=== PATIENT | male | born 1985 | race Caucasian/White ===

== ENCOUNTER → 2020-08-10 10:57 | Outpatient (BNVA) | payer MEDICAID, SELFPAY | PROVIDERS: PCP Physician Assistant; Visit Provider Urology ==

== ENCOUNTER 2021-03-03 09:32 | Outpatient (REF) | payer OTHER, SELFPAY ==
[2021-03-03 11:04] LABS: Hematocrit 39.2 % (37-47); Hemoglobin 13.2 g/dl (12.0-16.0); Mean Corpuscular HGB Conc 33.7 g/dl (31.0-35.0); Mean Corpuscular Hemoglobin 31.3 pg (27.0-33.0); Mean Corpuscular Volume 92.9 fL (80-98); Mean Platelet Volume 10.1 fL (9.4-12.3); Platelet Count 318 X10*3/uL (160-400); Red Blood Count 4.22 X10*6/uL (4.20-5.50); Red Cell Distribution Width 12.8 % (11.0-16.0); White Blood Count 7.3 X10*3/uL (4.8-10.8)
[2021-03-03 12:04] LABS: TSH reflex Free T4 1.02 uIU/mL (0.32-4.0)
[2021-03-03 12:09] LABS: Alanine Aminotransferase 8 U/L (0-31); Albumin Level 4.3 g/dL (3.5-5.0); Alkaline Phosphatase 61 U/L (39-117); Anion Gap 12 (12-20); Aspartate Amino Transferase 14 U/L (5-31); Bilirubin Total 0.4 mg/dL (0.0-1.0); Blood Urea Nitrogen 11 mg/dL (9-16); Calcium 9.1 mg/dL (8.4-10.2); Carbon Dioxide 22 mmol/L (22-29); Chloride 111 mmol/L (96-108); Cholesterol 192 mg/dL; Estimated Glomerular Filt Rate > 60; Glucose Fasting 89 mg/dL (60-99); HDL Cholesterol 68 mg/dL; LDL Cholesterol Calculated 87 mg/dl; Potassium 4.4 mmol/L (3.3-5.1); Sodium 141 mmol/L (135-145); Total Protein 6.9 g/dL (6.5-8.0); Triglycerides 189 mg/dL
== END 2021-03-03 09:33 | disposition home or self-care (01) ==
LOC: HO.WFDLDS 09:32
PROVIDERS: Visit Provider Hospitalist
DX: Z00.00 Encounter for general adult medical examination without abnormal findings (principal)
CPT/HCPCS: 36415; 80053; 80061; 84443; 85027

== ENCOUNTER → 2021-06-07 14:08 | Outpatient (BNVA) | payer OTHER, SELFPAY | PROVIDERS: PCP Hospitalist | DX: N20.0 Calculus of kidney (principal); N13.30 Unspecified hydronephrosis | CPT/HCPCS: 99202 ==

== ENCOUNTER 2021-07-05 16:20 | Outpatient (REF) | payer OTHER, SELFPAY ==
--- NOTE | ~2021-07-05 | US_ITS ---
EXAMINATION: US RETROPERITONEAL LIMITED (RENAL ONLY) CLINICAL INFORMATION: Calculus of kidney. COMPARISON: None TECHNIQUE: Real-time imaging of the kidneys. FINDINGS: RIGHT KIDNEY: 12.8 x 3.4 x 4.2 cm (SAG x AP x TRV). The kidney is normal in size, contour, and echogenicity. Renal cortical thickness is normal. No calculi or focal parenchymal lesions. No hydronephrosis. LEFT KIDNEY: 13.1 x 5.9 x 5.0 cm (SAG x AP x TRV). The kidney is normal in size, contour, and echogenicity. Renal cortical thickness is normal. There is a 3 x 4 mm echogenic focus in the upper pole of the left kidney questionable for a stone. No focal parenchymal lesions. No hydronephrosis. US/US renal BI IMPRESSION: Question small left renal stone.
== END 2021-07-05 16:21 | disposition home or self-care (01) ==
LOC: HO.US 16:20
PROVIDERS: PCP Hospitalist
DX: N20.0 Calculus of kidney (principal); N13.30 Unspecified hydronephrosis
CPT/HCPCS: 76775

== ENCOUNTER → 2021-08-04 09:44 | Outpatient (BNVA) | payer OTHER, SELFPAY | PROVIDERS: PCP Hospitalist | DX: Z13.89 Encounter for screening for other disorder (principal) ==

== ENCOUNTER 2022-01-17 09:38 | Outpatient (REF) | payer OTHER, SELFPAY ==
--- NOTE | ~2022-01-17 | US_ITS ---
EXAMINATION: US RETROPERITONEAL LIMITED (RENAL ONLY) CLINICAL INFORMATION: Calculus of kidney. COMPARISON: Bilateral renal ultrasound dated 07/05/2021. TECHNIQUE: Real-time imaging of the kidneys. FINDINGS: RIGHT KIDNEY: 13.7 x 4.1 x 5.6 cm (SAG x AP x TRV). The kidney is normal in size, contour, and echogenicity. Renal cortical thickness is normal. No calculi or focal parenchymal lesions. Mild right-sided hydronephrosis is present. LEFT KIDNEY: 13.3 x 5.0 x 5.1 cm (SAG x AP x TRV). The kidney is normal in size, contour, and echogenicity. Renal cortical thickness is normal. There is a mid pole stone measuring 4 x 3 x 4 mm. No renal calculi or hydronephrosis. There is an anechoic structure seen in the lower renal sinus. Differential diagnosis would include a parapelvic cyst versus hydronephrosis in a duplicated collecting system. US/US renal BI IMPRESSION: 1. Mild right-sided hydronephrosis. 2. Anechoic structure in the lower renal pelvis on the left-parapelvic cysts versus hydronephrosis in the lower pole collecting system. A CT urogram may be useful for further evaluation. 3. Midpole 4 mm nonobstructing calculus.
== END 2022-01-17 09:39 | disposition home or self-care (01) ==
LOC: HO.HMGCX 09:38
DX: N20.0 Calculus of kidney (principal)
CPT/HCPCS: 76775

== ENCOUNTER 2022-02-09 09:35 | Outpatient (REF) | payer OTHER, SELFPAY ==
--- NOTE | ~2022-02-09 | CT_ITS ---
EXAMINATION: CT ABDOMEN AND PELVIS WITHOUT AND WITH CONTRAST CLINICAL INFORMATION: Parapelvic cysts versus hydronephrosis in duplicated collecting systems left kidney COMPARISON: Ultrasound abdomen 01/17/2022 TECHNIQUE: Noncontrast CT of the abdomen and pelvis is performed followed by split bolus contrast-enhanced images using 67 mL Omnipaque 350 contrast.? Postcontrast imaging is performed during the combined nephrogram and excretion phase. Sagittal and coronal reformatted images were obtained on the technologist's workstation for both the precontrast and postcontrast phases. This CT examination was performed using dose optimization techniques as appropriate, variously including the following: *Automated exposure control *Adjustment of mA and/or kV according to patient size (this includes techniques or standardized protocols for targeted exams where dose is matched to indication/reason for exam; i.e. extremities or head) *Use of iterative reconstruction technique DLP: 625 mGy-cm FINDINGS: LUNG BASES: The visualized lung bases are unremarkable. LIVER, GALLBLADDER, AND BILIARY TREE: The liver is normal in size, shape, and attenuation. No focal hepatic lesion or biliary ductal dilatation is present. The gallbladder is unremarkable with no evidence of radiopaque gallstones, gallbladder wall thickening, or obvious pericholecystic inflammatory changes. PANCREAS: Unremarkable. SPLEEN: Unremarkable. ADRENAL GLANDS: Unremarkable. KIDNEYS AND URETERS: Both kidneys are normal size, shape and attenuation. There is a 5 mm nonobstructive radiopaque calculi mid pole left kidney.. Postcontrast there are symmetrical bilateral nephrograms. The left kidney measures 11.3 cm in length and the right kidney measures 0.9 cm in length. There is a prominent elongated lower pole calyx left kidney. There is no dislocation parapelvic cysts seen. There is no hydronephrosis on either side. Mild bilateral extrarenal kidney pelvises are noted right greater than left. There is good opacification of bilateral kidney pelvises, proximal and mid ureters without any intraluminal filling defect BLADDER: The bladder is opacified with oral contrast and appears unremarkable. GASTROINTESTINAL TRACT: There is scattered stool and gas seen throughout the colon without significant distention. There is air-fluid level within there is cc, and proximal ascending colon The small bowel loops are normal caliber. Appendix is not visualized. The stomach is nondistended. ABDOMINAL WALL: No significant hernia is appreciated. LYMPH NODES: Normal. VASCULAR: Unremarkable. PELVIC VISCERA: The uterus is anteverted and appears unremarkable. No adnexal mass or free fluid seen. OSSEUS STRUCTURES: No lytic or sclerotic process seen. CT/CT urogram IMPRESSION: Unremarkable kidneys. No evidence of duplicated system or left peripelvic cysts seen in the left kidney. There are bilateral extrarenal kidney pelvises 5 mm nonobstructive calculi midpole left kidney.
[2022-02-09] MEDS: iohexoL 350 MG/ML 100 ML INFUS..BTL IV (10:30)
== END 2022-02-09 09:36 | disposition home or self-care (01) ==
LOC: HO.CT 09:35
PROVIDERS: Visit Provider Urology
DX: N20.0 Calculus of kidney (principal); N13.30 Unspecified hydronephrosis
CPT/HCPCS: 74178; Q9967

== ENCOUNTER → 2022-02-27 11:18 | Outpatient (BNVA) | payer OTHER, SELFPAY | PROVIDERS: PCP Hospitalist; Visit Provider Urology | DX: N20.0 Calculus of kidney (principal) | CPT/HCPCS: 99212 ==

== ENCOUNTER 2022-03-17 11:38 | Outpatient (REF) | payer OTHER, SELFPAY ==
[2022-03-17 12:42] LABS: Influenza A PCR NEGATIVE (Negative); Influenza B PCR NEGATIVE (Negative); Resp Syncy Virus RNA Qual PCR NEGATIVE (Negative); SARS COV2 PCR INHOUSE NEGATIVE (Negative)
== END 2022-03-17 11:39 | disposition home or self-care (01) ==
LOC: HO.LNP 11:38
PROVIDERS: Visit Provider Nurse Practitioner Family
DX: Z20.822 Contact with and (suspected) exposure to COVID-19 (principal)
CPT/HCPCS: 0241U

== ENCOUNTER 2022-03-22 06:35 | Day surgery (SDC) | payer OTHER, SELFPAY ==
[2022-03-15 12:48] VITALS: BMI 21.7
--- NOTE | 2022-03-21 12:36 | P.CONAN_ITS ---
Documented by User: Adriana Hancock NP 03/21/22 12:36 HPI - Anesthesia Eval Consult details Narrative: 36yo F for Left ESWL No previous on record Hx PONV PMFSH Active Problems Active Problems: All Active Problems (Updated 03/17/22 @ 09:12 by Cecy Ivory CNP) Viral upper respiratory illness (Acute) Nephrolithiasis (Acute) Hydronephrosis (Acute) Right otitis media (Acute) Well adult exam (Acute) Bipolar 1 disorder, depressed, moderate (Acute) Right shoulder pain (Acute) Physical exam, annual (Acute) URI with cough and congestion (Acute) Seasonal allergies (Acute) History of COVID-19 (Acute) Acute asthma (Acute) Asthma, chronic (Acute) Abrasion of ear (Acute) Recurrent dislocation, right shoulder (Acute) Renal calculi (Acute) Past Medical History Medical History History of postoperative nausea Low back pain Renal calculi Family History Family History Paternal Aunt Bipolar 1 disorder Maternal Grandmother Bipolar 1 disorder Mother Heart disease Other Mental health disorder Surgical History Surgical History History of mandibular surgery History of shoulder surgery Hx of colonoscopy Hx of tubal ligation Social History Social History Housing: Apartment Are you a primary insurance healthcare consultant to a significant other at home: Yes (2 children) Do you presently have visiting nurse or other home services: No Alcohol intake: current Alcohol intake frequency: holidays/special occasions only Patient Tobacco Use Status: Never used Tobacco e-Cigarette/Vaping Use: Never Used Second Hand Smoke Exposure: No Use of substances other than those prescribed or required for medical reasons: No Have you been hit, kicked, punched, or otherwise hurt by someone within the past year? If so, by whom?: No Are you DNR?: No Advance Directives: No Advance Directives Information Provided: Yes Advance Directives on File: No Recently lost weight without trying: No Patient : No FDLMP: 03/07/2022 : No Poor oral hygiene: No service: No Current occupational status: unemployed Cognitive needs: No Hearing needs: No Vision needs: Yes (Glasses) Meds Allergies Allergy/AdvReac Type Severity Reaction Status Date / Time lactose Allergy Severe Diarrhea Verified 03/22/22 07:24 Penicillins Allergy Severe Swelling Verified 03/22/22 07:24 bupropion Allergy Intermediate Rash Verified 03/22/22 07:24 grass pollen Allergy Intermediate watery Verified 03/22/22 07:24 eyes, sneezing aripiprazole Allergy Unknown unknown Verified 03/22/22 07:24 azithromycin Allergy Unknown Unknown Verified 03/22/22 07:24 lamotrigine Allergy Unknown Unknown Verified 03/22/22 07:24 oxcarbazepine Allergy Unknown Rash Verified 03/22/22 07:24 gabapentin AdvReac Severe dizziness Verified 03/22/22 07:24 unable to take Home Medications Medication Instructions Recorded Confirmed Last Taken Type fluvoxamine 150 mg 150 mg PO BEDTIME 02/28/21 03/15/22 Unknown History capsule,extended release 24 hr cetirizine 10 mg tablet 10 mg PO DAILY 08/04/21 03/22/22 Unknown History lorazepam 0.5 mg tablet 0.5 mg PO DAILY PRN anxiety 08/04/21 03/22/22 Unknown History Exam Exam Date and Time: March 21, 2022 1236 Height,Weight and Vital Signs: Height 5 ft 6 in Weight 61.235 kg Assessment and Plan Assessment Anesthesia Assessment: Chart Reviewed Documented by User: Eric Nunez MD 03/22/22 07:44 [facility] Past Medical History Medical History History of postoperative nausea Low back pain Renal calculi Family History Family History Paternal Aunt Bipolar 1 disorder Maternal Grandmother Bipolar 1 disorder Mother Heart disease Other Mental health disorder Family history of problems with anesthesia: No Surgical History Surgical History History of mandibular surgery History of shoulder surgery Hx of colonoscopy Hx of tubal ligation History of Problems with Anesthesia: No Social History Social History Housing: Apartment Are you a primary insurance healthcare consultant to a significant other at home: Yes (2 children) Do you presently have visiting nurse or other home services: No Alcohol intake: current Alcohol intake frequency: holidays/special occasions only Patient Tobacco Use Status: Never used Tobacco e-Cigarette/Vaping Use: Never Used Second Hand Smoke Exposure: No Use of substances other than those prescribed or required for medical reasons: No Have you been hit, kicked, punched, or otherwise hurt by someone within the past year? If so, by whom?: No Are you DNR?: No Advance Directives: No Advance Directives Information Provided: Yes Advance Directives on File: No Recently lost weight without trying: No Patient : No FDLMP: 03/07/2022 : No Poor oral hygiene: No service: No Current occupational status: unemployed Cognitive needs: No Hearing needs: No Vision needs: Yes (Glasses) Meds Allergies Allergy/AdvReac Type Severity Reaction Status Date / Time lactose Allergy Severe Diarrhea Verified 03/22/22 07:24 Penicillins Allergy Severe Swelling Verified 03/22/22 07:24 bupropion Allergy Intermediate Rash Verified 03/22/22 07:24 grass pollen Allergy Intermediate watery Verified 03/22/22 07:24 eyes, sneezing aripiprazole Allergy Unknown unknown Verified 03/22/22 07:24 azithromycin Allergy Unknown Unknown Verified 03/22/22 07:24 lamotrigine Allergy Unknown Unknown Verified 03/22/22 07:24 oxcarbazepine Allergy Unknown Rash Verified 03/22/22 07:24 gabapentin AdvReac Severe dizziness Verified 03/22/22 07:24 unable to take Home Medications Medication Instructions Recorded Confirmed Last Taken Type fluvoxamine 150 mg 150 mg PO BEDTIME 02/28/21 03/15/22 Unknown History capsule,extended release 24 hr cetirizine 10 mg tablet 10 mg PO DAILY 08/04/21 03/22/22 Unknown History lorazepam 0.5 mg tablet 0.5 mg PO DAILY PRN anxiety 08/04/21 03/22/22 Unknown History Exam Airway Mallampati Class: II TM Dist: >3cm Neck ROM: Full Loose/Missing/Broken Teeth: No Heart: rrr+s1s2 Lungs: cta b/l Assessment and Plan Assessment Anesthesia Assessment: Anesthesia Plan Discussed Final Anesthetic Review Family History of Problems with Anesthesia: No History of Problems with Anesthesia: No NPO: Yes ASA Class: II Final Preanesthetic Review: No Changes in Pt Med Stat, Meds/Allgs Chart Reviewed, Consent Obtained/Reviewed and Anes Risks/Benef Reviewed Patient Risk: Intermediate Procedure Risk: Intermediate Assessment/Block/Sedation in SS: Assess/Block/Sedation-SS Anesthetic Plan Anesthetic Plan: MAC: and Agree w/ Assess. and Plan Disposition: Standard PACU
--- NOTE | ~2022-03-22 | XR_ITS ---
EXAMINATION: XR ABDOMEN KUB CLINICAL INDICATION: Kidney stone. COMPARISON: CT urogram dated 02/09/2022; renal ultrasound dated 01/17/2022. TECHNIQUE: 2 AP views of the abdomen and pelvis are submitted. FINDINGS: The bowel gas pattern is normal with no evidence of ileus or obstruction. No unusual soft tissue calcifications are noted. No definite urinary calculus is appreciated, with imaging significantly limited by overlapping bowel gas. In particular, previously noted left renal calculi are not appreciated. The bones are unremarkable. XR/XR KUB IMPRESSION: No definite urinary calculus is seen radiographically, with imaging significantly limited by overlapping bowel contents
[2022-03-22 07:24] VITALS: BP 130/70; PULSE 89; RESP 16; TEMP 36.7; O2SAT 99
[2022-03-22] MEDS: Lactated Ringers 1,000 ML 100 ML IVCONT (07:43)
--- NOTE | 2022-03-22 07:45 | HO.ANESPROP2 ---
HPI - Anesthesia Eval Consult details Narrative: renal calculi PMFSH Active Problems Active Problems: All Active Problems (Updated 03/17/22 @ 09:12 by Cecy Ivory CNP) Viral upper respiratory illness (Acute) Nephrolithiasis (Acute) Hydronephrosis (Acute) Right otitis media (Acute) Well adult exam (Acute) Bipolar 1 disorder, depressed, moderate (Acute) Right shoulder pain (Acute) Physical exam, annual (Acute) URI with cough and congestion (Acute) Seasonal allergies (Acute) History of COVID-19 (Acute) Acute asthma (Acute) Asthma, chronic (Acute) Abrasion of ear (Acute) Recurrent dislocation, right shoulder (Acute) Renal calculi (Acute) Past Medical History Medical History History of postoperative nausea Low back pain Renal calculi Family History Family History Paternal Aunt Bipolar 1 disorder Maternal Grandmother Bipolar 1 disorder Mother Heart disease Other Mental health disorder Family history of problems with anesthesia: No Surgical History Surgical History History of mandibular surgery History of shoulder surgery Hx of colonoscopy Hx of tubal ligation History of Problems with Anesthesia: No Social History Social History Housing: Apartment Are you a primary rn transitional care to a significant other at home: Yes (2 children) Do you presently have visiting nurse or other home services: No Alcohol intake: current Alcohol intake frequency: holidays/special occasions only Patient Tobacco Use Status: Never used Tobacco e-Cigarette/Vaping Use: Never Used Second Hand Smoke Exposure: No Use of substances other than those prescribed or required for medical reasons: No Have you been hit, kicked, punched, or otherwise hurt by someone within the past year? If so, by whom?: No Are you DNR?: No Advance Directives: No Advance Directives Information Provided: Yes Advance Directives on File: No Recently lost weight without trying: No Patient : No FDLMP: 03/07/2022 : No Poor oral hygiene: No service: No Current occupational status: unemployed Cognitive needs: No Hearing needs: No Vision needs: Yes (Glasses) Meds Allergies Allergy/AdvReac Type Severity Reaction Status Date / Time lactose Allergy Severe Diarrhea Verified 03/22/22 07:24 Penicillins Allergy Severe Swelling Verified 03/22/22 07:24 bupropion Allergy Intermediate Rash Verified 03/22/22 07:24 grass pollen Allergy Intermediate watery Verified 03/22/22 07:24 eyes, sneezing aripiprazole Allergy Unknown unknown Verified 03/22/22 07:24 azithromycin Allergy Unknown Unknown Verified 03/22/22 07:24 lamotrigine Allergy Unknown Unknown Verified 03/22/22 07:24 oxcarbazepine Allergy Unknown Rash Verified 03/22/22 07:24 gabapentin AdvReac Severe dizziness Verified 03/22/22 07:24 unable to take Active Medications: Current Medications Albuterol Sulfate (Albuterol Sulfate (0.083%) 2.5 Mg/3 Ml Vial.Neb) 2.5 mg INHALE ONCE PRN PRN Reason: Shortness of Breath/Wheezing Levofloxacin (Levaquin) 500 mg in 100 mls @ 100 mls/hr IV PREOP ONE Stop: 03/22/22 08:26 Lactated Ringer's (Lr) 1,000 mls @ 100 mls/hr IVCONT .Q10H MARAL Last Admin: 03/22/22 07:43 Dose: 100 mls/hr Home Medications Medication Instructions Recorded Confirmed Last Taken Type fluvoxamine 150 mg 150 mg PO BEDTIME 02/28/21 03/15/22 Unknown History capsule,extended release 24 hr cetirizine 10 mg tablet 10 mg PO DAILY 08/04/21 03/22/22 Unknown History lorazepam 0.5 mg tablet 0.5 mg PO DAILY PRN anxiety 08/04/21 03/22/22 Unknown History Exam Exam Date and Time: March 22, 2022 0745 Height,Weight and Vital Signs: Height 5 ft 6 in Weight 61.235 kg Last Vital Signs Temp 98.0 F 03/22/22 07:24 Pulse 89 03/22/22 07:24 Resp 16 03/22/22 07:24 BP 130/70 03/22/22 07:24 Pulse Ox 99 03/22/22 07:24 O2 Del Method 03/22/22 07:24 Airway Mallampati Class: II TM Dist: >3cm Neck ROM: Full Loose/Missing/Broken Teeth: No Heart: rrr+s1s2 Lungs: cta b/l Assessment and Plan Assessment Anesthesia Assessment: Anesthesia Plan Discussed and Chart Reviewed Final Anesthetic Review Family History of Problems with Anesthesia: No History of Problems with Anesthesia: No NPO: Yes ASA Class: II Final Preanesthetic Review: No Changes in Pt Med Stat, Meds/Allgs Chart Reviewed, Consent Obtained/Reviewed and Anes Risks/Benef Reviewed Patient Risk: Intermediate Procedure Risk: Intermediate Assessment/Block/Sedation in SS: Assess/Block/Sedation-SS Anesthetic Plan Anesthetic Plan: MAC: and Agree w/ Assess. and Plan Disposition: Standard PACU
--- NOTE | 2022-03-22 08:04 | MHC.SHP ---
Pre-Procedural Eval Section A Date of Service: 03/22/22 The patient is an INPATIENT: No Section B Chief Complaint: Calculus of kidney Allergies: Allergies Allergy/AdvReac Type Severity Reaction Status Date / Time lactose Allergy Severe Diarrhea Verified 03/22/22 07:24 Penicillins Allergy Severe Swelling Verified 03/22/22 07:24 bupropion Allergy Intermediate Rash Verified 03/22/22 07:24 grass pollen Allergy Intermediate watery Verified 03/22/22 07:24 eyes, sneezing aripiprazole Allergy Unknown unknown Verified 03/22/22 07:24 azithromycin Allergy Unknown Unknown Verified 03/22/22 07:24 lamotrigine Allergy Unknown Unknown Verified 03/22/22 07:24 oxcarbazepine Allergy Unknown Rash Verified 03/22/22 07:24 gabapentin AdvReac Severe dizziness Verified 03/22/22 07:24 unable to take Plan I have reviewed the history and physical and performed a pertinent physical examination on my patient. No changes have occurred unless specified. Left ESWL. Discussed risks to include but not limited to, blood in the urine, bruising to the skin, kidney hematoma, possible need for another procedure if a stone fragment obstructs the ureter while passing, possible need to repeat procedure if stone is not completely fragmented.
--- NOTE | 2022-03-22 08:35 | W.PM.OPN ---
Operative Note Operative Note Date of Service: 03/22/22 Narrative: PreOperative Diagnosis:? ? Left Renal stone Post Operative Diagnosis:?Left? Renal stone Procedure:?Left? ESWL Surgeon:?Dr Catracho Scanlon Anesthesia:? MAC Indications for procedure: Hattie is a 36 year old female with 5 mm stone left kidney mid to lower pole. The patient understands ESWL may be a staged procedure and subsequent intervention may be required based on imaging after ESWL.? They also understand? there is a risk of bleeding to the kidney, infection, damage to adjacent organs, and stone migration following the procedure. Procedure: After informed consent was verified the patient was brought to the operating room and placed in a supine position.? Anesthesia was performed per protocol. Levaquin IV for antibiotic prophylaxis. Safety pause time-out was performed. Imaging was displayed in the room and laterality confirmed. ESWL was performed.?The stone was visualized on both fluoroscopy and ultrasound.? Shockwave lithotripsy was performed, after the first 300 shocks a pause for 3 minutes.? A total of 2000 shocks to a maximum of power of 18 with a maximum rate of 120 hertz.? Good fragmentation of the stone was appreciated. The patient tolerated the procedure well and was transferred to the recovery area upon completion. There was no evidence for flank discoloration. Complications: None
[2022-03-22 08:58] VITALS: BP 118/72; PULSE 95; RESP 16; TEMP 37.1; O2SAT 100
[2022-03-22 09:13] VITALS: BP 123/77; PULSE 90; RESP 16; TEMP 36.6; O2SAT 100
== END 2022-03-22 10:39 | disposition home or self-care (01) ==
PROVIDERS: Visit Provider Urology
PROC: (CPT 50590; principal; 2022-03-22 08:20)
DX: N20.0 Calculus of kidney (principal); Z87.442 Personal history of urinary calculi; J45.998 Other asthma; F31.9 Bipolar disorder, unspecified; Z79.899 Other long term (current) drug therapy; Z88.0 Allergy status to penicillin; Z88.8 Allergy status to other drugs, medicaments and biological substances; Z98.890 Other specified postprocedural states; Z86.16 Personal history of COVID-19
CPT/HCPCS: 50590; 74018; J1956; J2250

== ENCOUNTER 2022-04-01 10:00 | Outpatient (REF) | payer OTHER, SELFPAY ==
[2022-04-01 10:37] LABS: Blood Urea Nitrogen 7 mg/dL (9-16); Estimated Glomerular Filt Rate > 60
== END 2022-04-01 10:01 | disposition home or self-care (01) ==
LOC: HO.LAB 10:00
PROVIDERS: PCP Hospitalist; Visit Provider Urology
DX: N20.0 Calculus of kidney (principal)
CPT/HCPCS: 36415; 82565; 84520

== ENCOUNTER 2022-05-15 09:50 | Outpatient (REF) | payer OTHER, SELFPAY ==
--- NOTE | ~2022-05-15 | US_ITS ---
EXAMINATION: US RETROPERITONEAL LIMITED (RENAL ONLY) CLINICAL INFORMATION: Calculus of kidney. COMPARISON: X-ray abdomen KUB 03/22/2022. CT abdomen and pelvis without and with contrast 02/09/2022. Ultrasound retroperitoneal limited (renal only) 01/17/2022 and 07/05/2021. TECHNIQUE: Real-time imaging of the kidneys. FINDINGS: RIGHT KIDNEY: 12.1 x 2.5 x 3.8 cm (SAG x AP x TRV). The kidney is normal in size, contour, and echogenicity. Renal cortical thickness is normal. No calculi or focal parenchymal lesions. No hydronephrosis. Upper pole echogenic 3 mm focus without posterior acoustic shadowing may reflect a nonobstructing calculus versus vascular calcification.. LEFT KIDNEY: 13.1 x 5.6 x 4.6 cm (SAG x AP x TRV). The kidney is normal in size, contour, and echogenicity. Renal cortical thickness is normal. No focal parenchymal lesions or hydronephrosis. Upper pole 9 x 3 mm echogenic focus, suggesting nonobstructing calculus. Multiple echogenic foci otherwise seen in the upper pole, could reflect vascular calcifications or nonobstructing calculi. Previously seen anechoic focus in the lower renal sinus, is less evident in today's study. US/US renal BI IMPRESSION: 1. Right renal 3 mm upper pole nonobstructing talus versus vascular calcification. No hydronephrosis. 2. Left renal 9 mm upper pole nonobstructing calculus. Additional echogenic foci, nonspecific, from small vascular calcifications or nonobstructing calculi. 3. Additional findings and details as above.
== END 2022-05-15 09:51 | disposition home or self-care (01) ==
LOC: HO.US 09:50
PROVIDERS: PCP Hospitalist; Visit Provider Urology
DX: N20.0 Calculus of kidney (principal)
CPT/HCPCS: 76775

== ENCOUNTER → 2022-06-09 15:24 | Outpatient (BNVA) | payer OTHER, SELFPAY | PROVIDERS: PCP Hospitalist; Visit Provider Nurse Practitioner Family | DX: N20.0 Calculus of kidney (principal) | CPT/HCPCS: 99212 ==

== ENCOUNTER 2022-06-21 06:15 | Day surgery (SDC) | payer OTHER, SELFPAY ==
--- NOTE | ~2022-06-21 | XR_ITS ---
EXAMINATION: XR ABDOMEN KUB CLINICAL INDICATION: Stone COMPARISON: Ultrasound 05/15/2022 TECHNIQUE: AP view of the abdomen. FINDINGS: There is no definite calcification seen overlying the expected position of either kidney or ureter. Colonic stool does limit the evaluation. There is a moderate diffuse stool burden. No bowel obstruction. No acute osseous abnormality. The lung bases are clear. XR/XR KUB IMPRESSION: No definite calcification seen overlying the expected position of either kidney or ureter. Moderate stool burden.
[2022-06-21 06:38] VITALS: BMI 23.8
[2022-06-21 06:49] VITALS: BP 140/64; PULSE 96; RESP 16; TEMP 37; O2SAT 97
[2022-06-21] MEDS: Lactated Ringers 1,000 ML 999 ML IV (07:00)
--- NOTE | 2022-06-21 07:23 | MHC.SHP ---
Pre-Procedural Eval Section A Date of Service: 06/21/22 The patient is an INPATIENT: No The History & Physical has been completed within 30 days and I have reviewed it.: Yes Section B Chief Complaint: Calculus of kidney Details of Present Illness: left ESWL 9mm stone Medical History: No relevant PMH History of Previous Operations: Relevant previous surgery/procedure and date(s) Allergies: Allergies Allergy/AdvReac Type Severity Reaction Status Date / Time lactose Allergy Severe Diarrhea Verified 06/09/22 17:05 Penicillins Allergy Severe Swelling Verified 06/09/22 17:05 bupropion Allergy Intermediate Rash Verified 06/09/22 17:05 grass pollen Allergy Intermediate watery Verified 06/09/22 17:05 eyes, sneezing aripiprazole Allergy Unknown unknown Verified 06/09/22 17:05 azithromycin Allergy Unknown Unknown Verified 06/09/22 17:05 lamotrigine Allergy Unknown Unknown Verified 06/09/22 17:05 oxcarbazepine Allergy Unknown Rash Verified 06/09/22 17:05 gabapentin AdvReac Severe dizziness Verified 06/09/22 17:05 unable to take Review of Systems Sugical H&P ROS: Negative: Constitution, Cardiovascular, Respiratory, Neurological, Psychiatric, Hem-Onc, Allergic/Immunologic, Gastrointestinal, Genitourinary, Musculoskeletal, Integumentary, Endocrine and Eyes/Ears/Nose/Throat Exam Surgical H&P Exam: Normal: HEENT, Normal: Heart, Normal: Lungs, Normal: Extremities, Normal: Abdomen, Normal: Skin and Normal: Neurological Plan Diagnosis/Plan: Unchanged (left ESWL) I have reviewed the history and physical and performed a pertinent physical examination on my patient. No changes have occurred unless specified. Time Spent With Patient Time: Total time managing care of this patient today ____ minutes.
--- NOTE | 2022-06-21 07:25 | HO.ANESPROP2 ---
HPI - Anesthesia Eval Consult details Narrative: for lithotripsy today. history of PONV PMFSH Active Problems Active Problems: All Active Problems (Updated 03/17/22 @ 09:12 by Cecy Ivory CNP) Viral upper respiratory illness (Acute) Nephrolithiasis (Acute) Hydronephrosis (Acute) Right otitis media (Acute) Well adult exam (Acute) Bipolar 1 disorder, depressed, moderate (Acute) Right shoulder pain (Acute) Physical exam, annual (Acute) URI with cough and congestion (Acute) Seasonal allergies (Acute) History of COVID-19 (Acute) Acute asthma (Acute) Asthma, chronic (Acute) Abrasion of ear (Acute) Recurrent dislocation, right shoulder (Acute) Renal calculi (Acute) Past Medical History Medical History History of postoperative nausea Low back pain Renal calculi Family History Family History Paternal Aunt Bipolar 1 disorder Maternal Grandmother Bipolar 1 disorder Mother Heart disease Other Mental health disorder Family history of problems with anesthesia: No Surgical History Surgical History History of mandibular surgery History of shoulder surgery Hx of colonoscopy Hx of tubal ligation History of Problems with Anesthesia: No Social History Social History Housing: Apartment Are you a primary toddler caregiver to a significant other at home: Yes (2 children) Do you presently have visiting nurse or other home services: No Alcohol intake: current Alcohol intake frequency: does not drink Patient Tobacco Use Status: Never used Tobacco e-Cigarette/Vaping Use: Never Used Second Hand Smoke Exposure: No Use of substances other than those prescribed or required for medical reasons: No Are you DNR?: No Advance Directives: No Advance Directives Information Provided: Yes Advance Directives on File: No service: No Current occupational status: unemployed Cognitive needs: No Hearing needs: No Vision needs: Yes (Glasses) Meds Allergies Allergy/AdvReac Type Severity Reaction Status Date / Time lactose Allergy Severe Diarrhea Verified 06/09/22 17:05 Penicillins Allergy Severe Swelling Verified 06/09/22 17:05 bupropion Allergy Intermediate Rash Verified 06/09/22 17:05 grass pollen Allergy Intermediate watery Verified 06/09/22 17:05 eyes, sneezing aripiprazole Allergy Unknown unknown Verified 06/09/22 17:05 azithromycin Allergy Unknown Unknown Verified 06/09/22 17:05 lamotrigine Allergy Unknown Unknown Verified 06/09/22 17:05 oxcarbazepine Allergy Unknown Rash Verified 06/09/22 17:05 gabapentin AdvReac Severe dizziness Verified 06/09/22 17:05 unable to take Active Medications: Current Medications Acetaminophen (Ofirmev) 1,000 mg in 100 mls @ 400 mls/hr IV PREOP ONE Stop: 06/21/22 07:35 Lactated Ringer's (Lr) 1,000 mls @ 999 mls/hr IV .Q1H1M MARAL Stop: 06/21/22 08:30 Sodium Chloride (0.9 % Sodium Chloride Flush 3 Ml Syringe) 3 ml IVFLUSH QSHIFT [facility] Home Medications Medication Instructions Recorded Confirmed Last Taken Type fluvoxamine 150 mg 150 mg PO BEDTIME 02/28/21 06/09/22 Unknown History capsule,extended release 24 hr cetirizine 10 mg tablet 10 mg PO DAILY 08/04/21 06/09/22 Unknown History lorazepam 0.5 mg tablet 0.5 mg PO DAILY PRN anxiety 08/04/21 06/09/22 Unknown History pyridoxine (vitamin B6) 100 mg 100 mg PO DAILY 06/09/22 Unknown History tablet Exam Exam Date and Time: June 21, 2022 0725 Height,Weight and Vital Signs: Height 5 ft 6 in Weight 67.132 kg Last Vital Signs Temp 98.6 F 06/21/22 06:49 Pulse 96 06/21/22 06:49 Resp 16 06/21/22 06:49 BP 140/64 H 06/21/22 06:49 Pulse Ox 97 06/21/22 06:49 O2 Del Method 06/21/22 06:49 Airway Mallampati Class: II TM Dist: >3cm Heart: rrr Lungs: cta Assessment and Plan Assessment Anesthesia Assessment: Anesthesia Plan Discussed and Chart Reviewed Final Anesthetic Review Family History of Problems with Anesthesia: No History of Problems with Anesthesia: No NPO: Yes ASA Class: II Final Preanesthetic Review: No Changes in Pt Med Stat, Meds/Allgs Chart Reviewed, Consent Obtained/Reviewed and Anes Risks/Benef Reviewed Patient Risk: Low Procedure Risk: Low Anesthetic Plan Anesthetic Plan: GA and Agree w/ Assess. and Plan Disposition: Standard PACU
--- NOTE | 2022-06-21 08:05 | W.PM.OPN ---
Operative Note Operative Note Date of Service: 06/21/22 Narrative: PreOperative Diagnosis: left Renal stones Post Operative Diagnosis: left Renal stones Procedure: left ESWL Surgeon: Dr Ramin Moy Anesthesia: mac/sedation Indications for procedure: The patient understands ESWL may be a staged procedure and subsequent intervention may be required based on imaging after ESWL. Quoted stone clearance rates for a solitary procedure are in the 70-80% range based primarily on stone location. They also understand there is a risk of bleeding to the kidney, infection, damage to adjacent organs, and stone migration following the procedure. - Imaging 9mm left upper pole on US Procedure: After informed consent was verified the patient was brought to the operating room and placed in a supine position. Anesthesia was performed per protocol. Safety pause time-out was performed. Imaging was displayed in the room and laterality confirmed. ESWL was performed. The 1st 500 shocks were performed at 60 hertz. These were performed with increasing power. Once maximum power was reached the rate was increased to 180 hertz. A total of 2500 shocks were given. Targeted imaging with ultrasound/fluoroscopy showed stone smudging suggestive of disintegration. - Stone fragments appeared caught in a calyx suggesting possibility of calyceal diverticulum The patient tolerated the procedure well and was transferred to the recovery area upon completion. Post procedure imaging will be organized. There was no evidence for flank discoloration.
[2022-06-21 08:33] VITALS: BP 102/63; PULSE 86; RESP 18; TEMP 36.8; O2SAT 99
[2022-06-21] MEDS: oxyCODONE HCl Immed Release 5 MG TABLET PO (08:43)
[2022-06-21] MEDS: Ketorolac Tromethamine 15 MG/ML VIAL IVPUSH (08:45)
[2022-06-21 08:48] VITALS: BP 131/72; PULSE 71; RESP 18; O2SAT 100
[2022-06-21 09:03] VITALS: BP 119/79; PULSE 82; RESP 18; TEMP 37; O2SAT 100
== END 2022-06-21 09:42 | disposition home or self-care (01) ==
PROVIDERS: PCP Hospitalist; Visit Provider Urology
PROC: (CPT 50590; principal; 2022-06-21 07:30)
DX: N20.0 Calculus of kidney (principal); Z87.442 Personal history of urinary calculi; F31.32 Bipolar disorder, current episode depressed, moderate; J45.909 Unspecified asthma, uncomplicated; Z79.51 Long term (current) use of inhaled steroids; Z79.899 Other long term (current) drug therapy; Z88.0 Allergy status to penicillin; Z88.8 Allergy status to other drugs, medicaments and biological substances; Z86.16 Personal history of COVID-19
CPT/HCPCS: 50590; 74018; J0131; J1885; J3010

== ENCOUNTER 2022-07-17 10:12 | Outpatient (REF) | payer OTHER, SELFPAY ==
--- NOTE | ~2022-07-17 | US_ITS ---
EXAMINATION: US RETROPERITONEAL LIMITED (RENAL ONLY) CLINICAL INFORMATION: Calculus of kidney. COMPARISON: Renal ultrasound 05/15/2022 and 01/17/2022. CT urogram 02/09/2022. TECHNIQUE: Real-time imaging of the kidneys. FINDINGS: RIGHT KIDNEY: 13.1 x 3.5 x 3.9 cm (SAG x AP x TRV). The kidney is normal in size, contour, and echogenicity. Renal cortical thickness is normal. No calculi or focal parenchymal lesions. No hydronephrosis. LEFT KIDNEY: 13.3 x 5.0 x 4.5 cm (SAG x AP x TRV). The kidney is normal in size, contour, and echogenicity. Renal cortical thickness is normal. No calculi or focal parenchymal lesions. No hydronephrosis. US/US renal BI IMPRESSION: No hydronephrosis. No nephrolithiasis is visible.
== END 2022-07-17 10:13 | disposition home or self-care (01) ==
LOC: HO.US 10:12
PROVIDERS: PCP Hospitalist; Visit Provider Nurse Practitioner Family
DX: N20.0 Calculus of kidney (principal)
CPT/HCPCS: 76775

== ENCOUNTER → 2022-08-03 10:26 | Outpatient (BNVA) | payer OTHER, SELFPAY | PROVIDERS: PCP Hospitalist; Visit Provider Nurse Practitioner Family | DX: N20.0 Calculus of kidney (principal) | CPT/HCPCS: 99212 ==

== ENCOUNTER 2022-08-21 22:05 | Emergency (ER) | payer OTHER, SELFPAY ==
--- NOTE | ~2022-08-21 | XR_ITS ---
EXAMINATION: XR HAND, LEFT CLINICAL INFORMATION: Left hand pain COMPARISON: None available. TECHNIQUE: PA, lateral, and oblique views of the left hand. FINDINGS: The bones and soft tissues are normal. No fracture. Alignment is anatomic. Joint spaces are maintained. No erosions or soft tissue calcifications. XR/XR hand LT min 3V IMPRESSION: Normal left hand.
[2022-08-21 22:33] VITALS: BP 122/88; PULSE 113; RESP 18; TEMP 36.9; O2SAT 99; BMI 21.7
--- NOTE | 2022-08-22 00:37 | ED.EXTPRO ---
HPI - Extremity Problem General Chief complaint: Extremity Injury, Upper Stated complaint: Left thumb injury at work Time Seen by Provider: 08/22/22 00:37 Source: patient Mode of arrival: ambulatory Limitations: no limitations History of Present Illness HPI Narrative: Patient complaining of left thumb pain which she claims that she got injured about a week ago at work when a Pallet fell on hand no deformity no swelling has pain on extension of the left thumb patient was sent from the work to confirm about any fracture Related Data Home Medications Medication Instructions Recorded Confirmed fluvoxamine 150 mg 150 mg PO BEDTIME 02/28/21 07/27/22 capsule,extended release 24 hr cetirizine 10 mg tablet 10 mg PO DAILY 08/04/21 07/27/22 lorazepam 0.5 mg tablet 0.5 mg PO DAILY PRN anxiety 08/04/21 07/27/22 Previous Rx's Medication Instructions Recorded albuterol sulfate 1.25 mg/3 mL 1.25 mg (3 mL) inhalation QID PRN 05/24/21 solution for nebulization shortness of breath or wheezing 1 month #90 mL albuterol sulfate 90 mcg/actuation 2 puff inhalation Q6H PRN for 08/03/21 aerosol inhaler (ProAir HFA) dyspnea #8.5 ea fluticasone propionate 50 2 spray intranasal DAILY #48 mL 03/13/22 mcg/actuation nasal spray,suspension pyridoxine (vitamin B6) 100 mg 50 mg PO DAILY 90 days #45 tabs 08/03/22 tablet ibuprofen 600 mg tablet 600 mg PO Q6H PRN fever or pain 08/22/22 #30 tabs Allergies Allergy/AdvReac Type Severity Reaction Status Date / Time lactose Allergy Severe Diarrhea Verified 08/21/22 22:41 Penicillins Allergy Severe Swelling Verified 08/21/22 22:41 bupropion Allergy Intermediate Rash Verified 08/21/22 22:41 grass pollen Allergy Intermediate watery Verified 08/21/22 22:41 eyes, sneezing aripiprazole Allergy Unknown unknown Verified 08/21/22 22:41 azithromycin Allergy Unknown Unknown Verified 08/21/22 22:41 lamotrigine Allergy Unknown Unknown Verified 08/21/22 22:41 oxcarbazepine Allergy Unknown Rash Verified 08/21/22 22:41 gabapentin AdvReac Severe dizziness Verified 08/21/22 22:41 unable to take Review of Systems Review of Systems: Yes all other systems are reviewed and are negative [facility] Past Medical History Medical History History of postoperative nausea Low back pain Renal calculi Surgical History History of mandibular surgery History of shoulder surgery Hx of colonoscopy Hx of tubal ligation Family History Family History Paternal Aunt Bipolar 1 disorder Maternal Grandmother Bipolar 1 disorder Mother Heart disease Other Mental health disorder Social History Social History Housing: Apartment Are you a primary pharmacy care coordinator to a significant other at home: Yes (2 children) Do you presently have visiting nurse or other home services: No Alcohol intake: current Alcohol intake frequency: does not drink Patient Tobacco Use Status: Never used Tobacco e-Cigarette/Vaping Use: Never Used Second Hand Smoke Exposure: No Advance Directives: Yes Advance Directives on File: Yes Advance Directives Date on File: 03/22/22 service: No Current occupational status: unemployed Cognitive needs: No Hearing needs: No Vision needs: Yes (Glasses) Physical Exam Vital Signs: Vital Signs: Last Vital Signs Temp 98.5 F 08/21/22 22:33 Pulse 113 H 08/21/22 22:33 Resp 18 08/21/22 22:33 BP 122/88 08/21/22 22:33 Pulse Ox 99 08/21/22 22:33 O2 Del Method Room Air 08/21/22 22:33 BMI result Body Mass Index 21.7 Extrem: Hand/finger images: 1. Diffuse soft tenderness left thumb without any deformity or bony tenderness good range of movement Medications Administered Discontinued Medications Generic Name Dose Route Start Last Admin Trade Name Freq PRN Reason Stop Dose Admin Ibuprofen 600 mg 08/22/22 00:49 08/22/22 00:58 Ibuprofen 600 Mg Tablet PO 08/22/22 00:50 600 mg ONCE ONE Administration Medical Decision Making Medical Decision Making [facility] Narrative: X-ray negative for any fracture clinically muscular pain patient already has a thumb spica brace which she will use it Discharge Plan Discharge Clinical Impression: Contusion of left thumb Patient Disposition: Home, Self-Care Instructions: Contusion in Adults (ED) Additional Instructions: Use the left thumb brace for support ibuprofen for pain x-rays negative for fracture Prescriptions: New ibuprofen 600 mg tablet 600 mg PO Q6H PRN (Reason: fever or pain) Qty: 30 0RF No Action albuterol sulfate 1.25 mg/3 mL solution for nebulization 1.25 mg inhalation QID PRN (Reason: shortness of breath or wheezing) 30 Days Qty: 90 4RF albuterol sulfate [ProAir HFA] 90 mcg/actuation HFA aerosol inhaler 2 puff inhalation Q6H PRN (Reason: for dyspnea) Qty: 8.5 11RF fluticasone propionate 50 mcg/actuation spray,suspension 2 spray intranasal DAILY Qty: 48 1RF fluvoxamine 150 mg capsule,extended release 24hr 150 mg PO BEDTIME pyridoxine (vitamin B6) 100 mg tablet 50 mg PO DAILY 90 Days Qty: 45 2RF cetirizine 10 mg tablet 10 mg PO DAILY lorazepam 0.5 mg tablet 0.5 mg PO DAILY PRN (Reason: anxiety) Discharge Date/Time: 08/22/22 01:05
[2022-08-22] MEDS: Ibuprofen 600 MG TABLET PO (00:58)
--- NOTE | 2022-08-22 01:03 | PC.NURSE ---
assess and discharge by provider, This rn reviewed discharge instructions, pt verbalized understanding, no sign of distress.
== END 2022-08-22 01:05 | disposition home or self-care (01) ==
PROVIDERS: Emergency Provider Internal Medicine; PCP Hospitalist
DX: S60.012A Contusion of left thumb without damage to nail, initial encounter (principal); W20.8XXA Other cause of strike by thrown, projected or falling object, initial encounter; Z79.899 Other long term (current) drug therapy; Y93.89 Activity, other specified; Y92.512 Supermarket, store or market as the place of occurrence of the external cause; Y99.0 Civilian activity done for income or pay
CPT/HCPCS: 29125; 73130; 99282; 99283

== ENCOUNTER 2022-11-21 04:21 | Emergency (ER) | payer OTHER, SELFPAY ==
--- NOTE | ~2022-11-21 | CT_ITS ---
EXAMINATION: CT HEAD WITHOUT CONTRAST CLINICAL INFORMATION: Headache. Head trauma. Loss of consciousness. COMPARISON: None. TECHNIQUE: Contiguous axial imaging was performed from the skull base to vertex without intravenous contrast. This CT examination was performed using dose optimization techniques as appropriate, variously including the following: * Automated exposure control * Adjustment of mA and/or kV according to patient size (this includes techniques or standardized protocols for targeted exams where dose is matched to indication/reason for exam; i.e. extremities or head) Use of iterative reconstruction technique DLP: 626 mGy-cm. FINDINGS: There is no evidence of acute intracranial hemorrhage or territorial infarction. No abnormal mass effect or midline shift is seen. May to white matter differentiation is well preserved. No extra-axial fluid collections are identified. No hydrocephalus. No significant volume loss. There is no abnormal attenuation within the brain parenchyma. The osseous structures and soft tissues are normal. The mastoid air cells and visualized portions of the paranasal sinuses are well aerated. CT/CT head/brain wo IV con IMPRESSION: No acute intracranial pathology.
[2022-11-21 04:28] VITALS: BP 148/9; PULSE 130; O2SAT 100
--- NOTE | 2022-11-21 04:30 | ECG_ITS ---
Test Reason : SYNCOPE Blood Pressure : / mmHG Vent. Rate : 109 BPM Atrial Rate : 109 BPM P-R Int : 080 ms QRS Dur : 102 ms QT Int : 384 ms P-R-T Axes : 013 063 003 degrees QTc Int : 517 ms Sinus tachycardia with short MA Otherwise normal ECG No previous ECGs available Referred By: Generic ED Physician Electronically Signed By:Luigi Morris
[2022-11-21 04:34] VITALS: BP 140/96; PULSE 116; RESP 19; TEMP 36.7; O2SAT 100; BMI 22.6
[2022-11-21 04:39] LABS: MANUAL DIFF FLAG NO
[2022-11-21 04:40] LABS: Basophils Percent Auto 0.3 % (0-2); Eosinophils Percent Auto 0.3 % (0-4); Hemoglobin 12.7 g/dl (12.0-16.0); Imm Gran Abs Auto 0.01 X10*3/uL (0.00-0.03); Imm Gran Pct Auto 0.2 % (0.0-0.4); Lymphocytes Absolute Auto 1.8 X10*3/uL (1.2-4.9); Lymphocytes Percent Auto 27.3 % (20-40); Mean Corpuscular HGB Conc 34.3 g/dl (31.0-35.0); Mean Corpuscular Hemoglobin 30.7 pg (27.0-33.0); Mean Corpuscular Volume 89.4 fL (80.0-98.0); Mean Platelet Volume 9.3 fL (9.4-12.3); Monocytes Absolute Auto 0.6 X10*3/uL (0.1-1.2); Monocytes Percent Auto 8.6 % (2-11); Neutrophils Absolute Auto 4.1 x10*3/uL (2.0-8.3); Neutrophils Percent Auto 63.3 % (45-73); Platelet Count 287 X10*3/uL (160-400); Red Blood Count 4.14 X10*6/uL (4.20-5.50); Red Cell Distribution Width 12.7 % (11.0-16.0); White Blood Count 6.4 X10*3/uL (4.8-10.8)
--- NOTE | 2022-11-21 04:46 | MHC.EDTECH ---
Patient came in by ambulance, patient was changed into hospital attire,Vitals taken and placed on the glost tile shader, EKG done and labs were obtained and sent to lab. Call martins is within reach.
[2022-11-21 04:53] LABS: Anion Gap 16 (12-20); Blood Urea Nitrogen 15 mg/dL (9-16); Calcium 8.9 mg/dL (8.4-10.2); Carbon Dioxide 17 mmol/L (22-29); Chloride 107 mmol/L (96-108); Creatinine Clr Calc Pharmacy 92.4; Estimated Glomerular Filt Rate > 60; Glucose Random 123 mg/dL (60-115); Potassium 3.5 mmol/L (3.3-5.1); Sodium 136 mmol/L (135-145)
[2022-11-21 05:04] LABS: Troponin-I High Sensitivity < 2.7 ng/L (<3.5-17.0)
[2022-11-21 05:48] VITALS: BP 129/65; PULSE 119; RESP 22; TEMP 36.7; O2SAT 99
[2022-11-21 06:00] LABS: Appearance Urine Clear; Color Urine Yellow; Glucose Urine UA Negative (Negative); Leukocyte Esterase Urine Negative (Negative); Nitrite Urine Negative (Negative); Specific Gravity - Urine <= 1.005 (1.005-1.025); Urine Blood Negative (Negative); Urine Ketones Negative (Negative); Urine Protein Negative (Neg-Trace)
[2022-11-21 06:01] LABS: UPreg QC Valid YES; Urine Pregnancy NEGATIVE (NEGATIVE)
--- NOTE | 2022-11-21 07:24 | ED_ITS ---
HPI - General Adult General Chief complaint: Fall Stated complaint: Dizziness/ Heat Stroke? Time Seen by Provider: 11/21/22 07:06 Source: patient and EMS Mode of arrival: EMS Limitations: no limitations History of Present Illness HPI narrative: 37-year-old female with history of asthma, migraine headaches, bipolar disorder presents after loss of consciousness. Patient was at work when she started feel lightheaded and dizzy. She then tried to sit down on her stool and fell back and hit her head. There was reported loss of consciousness. Patient and report they have recently moved to a new home, barely getting any sleep whatsoever and she works 3rd shift. She has not been eating well or drinking well. She did describe a prodrome of palpitations, mild nausea and shortness of breath. She has had no recent travel, surgeries, lower extremity edema. She has had no chest pain. She has no history of PE or DVT. Patient overall describes her symptoms as quite severe. She also has a left-sided headache which caught which she reports is similar to her usual migraines. The headache is severe associated with photo and phonophobia. There is mild nausea, no vomiting. She denies any sudden-onset headache. She denies any neck pain or stiffness. She denies any focal neurologic deficits. Related Data Home Medications Medication Instructions Recorded Confirmed fluvoxamine 150 mg 150 mg PO BEDTIME 02/28/21 07/27/22 capsule,extended release 24 hr cetirizine 10 mg tablet 10 mg PO DAILY 08/04/21 07/27/22 lorazepam 0.5 mg tablet 0.5 mg PO DAILY PRN anxiety 08/04/21 07/27/22 Previous Rx's Medication Instructions Recorded albuterol sulfate 1.25 mg/3 mL 1.25 mg (3 mL) inhalation QID PRN 05/24/21 solution for nebulization shortness of breath or wheezing 1 month #90 mL albuterol sulfate 90 mcg/actuation 2 puff inhalation Q6H PRN for 08/03/21 aerosol inhaler (ProAir HFA) dyspnea #8.5 ea fluticasone propionate 50 2 spray intranasal DAILY #48 mL 03/13/22 mcg/actuation nasal spray,suspension pyridoxine (vitamin B6) 100 mg 50 mg PO DAILY 90 days #45 tabs 08/03/22 tablet ibuprofen 600 mg tablet 600 mg PO Q6H PRN fever or pain 04/18/23 #30 tabs Allergies Allergy/AdvReac Type Severity Reaction Status Date / Time lactose Allergy Severe Diarrhea Verified 08/21/22 22:41 Penicillins Allergy Severe Swelling Verified 08/21/22 22:41 bupropion Allergy Intermediate Rash Verified 08/21/22 22:41 grass pollen Allergy Intermediate watery Verified 08/21/22 22:41 eyes, sneezing aripiprazole Allergy Unknown unknown Verified 08/21/22 22:41 azithromycin Allergy Unknown Unknown Verified 08/21/22 22:41 lamotrigine Allergy Unknown Unknown Verified 08/21/22 22:41 oxcarbazepine Allergy Unknown Rash Verified 08/21/22 22:41 gabapentin AdvReac Severe dizziness Verified 08/21/22 22:41 unable to take Review of Systems Review of Systems: CONSTITUTIONAL: Denies weight loss, fever and chills. HEENT: Denies changes in vision and hearing. RESPIRATORY: + SOB - cough. CV: Denies palpitations no CP. GI: Denies abdominal pain, nausea, vomiting and diarrhea. : Denies dysuria and urinary frequency. MSK: Denies myalgia and joint pain. SKIN: Denies rash and pruritus. NEUROLOGICAL: + headache and syncope. PSYCHIATRIC: Denies recent changes in mood. Denies anxiety and depression. All other ROS are negative unless in HPI PMFSH Past Medical History Medical History History of postoperative nausea Low back pain Renal calculi Surgical History History of mandibular surgery History of shoulder surgery Hx of colonoscopy Hx of tubal ligation Family History Family History Paternal Aunt Bipolar 1 disorder Maternal Grandmother Bipolar 1 disorder Mother Heart disease Other Mental health disorder Social History Social History Housing: Apartment Are you a primary resident care spec to a significant other at home: Yes (2 children) Do you presently have visiting nurse or other home services: No Alcohol intake: current Alcohol intake frequency: holidays/special occasions only Patient Tobacco Use Status: Never used Tobacco Smoked in Last 30 Days: No e-Cigarette/Vaping Use: Never Used Second Hand Smoke Exposure: No Use of substances other than those prescribed or required for medical reasons: No Advance Directives: Yes Advance Directives on File: Yes Advance Directives Date on File: 03/22/22 Patient : No service: No Current occupational status: unemployed Cognitive needs: No Hearing needs: No Vision needs: Yes (Glasses) Physical Exam ED Vital Signs: Vital Signs - 24 hr 11/21/22 04:34 11/21/22 05:48 11/21/22 07:36 Temperature 98.1 F 98.1 F 97.8 F Pulse Rate 116 H 119 H 112 H Respiratory Rate 19 22 H 19 Blood Pressure 140/96 H 129/65 135/80 Pulse Oximetry 100 99 99 Oxygen Delivery Method Room Air Room Air Room Air 11/21/22 08:05 Temperature 98.5 F Pulse Rate 91 Respiratory Rate 16 Blood Pressure 127/73 Pulse Oximetry 99 Oxygen Delivery Method Room Air BMI result Body Mass Index 22.6 GEN: Well developed, no acute distress, alert, oriented HEENT: Normocephalic, atraumatic, normal external ears, nose appears normal, no oropharyngeal edema or exudates Eyes: Normal to appearance Neck: Supple, no lymphadenopathy, no midline tenderness, able to remove C- collar Respiratory: Talks in complete sentences, no respiratory distress, clear to auscultation bilaterally Cardiovascular: Regular rate and rhythm, no murmurs rubs or gallops Abdomen: Soft, nontender, nondistended, no guarding, no rebound Back: No CVA tenderness Extremities: No clubbing cyanosis or edema Neurologic: No focal neurologic deficits, cranial nerves 2-12 intact, strength is 5/5 bilaterally Skin: No rash Course Course Course Narrative: It is 836 in the morning. Patient is feeling much better at this time. Her headache is nearly resolved. She still feels somewhat dizzy but would like to go home and sleep. Her laboratory analysis is unremarkable. CT scan of the head reveals no acute traumatic injury. At this point I believe is safe for patient to go home. I have recommended 2 days off from work. Patient can return for any worsening or concerning symptoms. Discussed all results with patient. She understands all discharge instructions. Medications Administered Discontinued Medications Generic Name Dose Route Start Last Admin Trade Name Freq PRN Reason Stop Dose Admin Acetaminophen 975 mg 11/21/22 07:30 07/18/23 07:38 Acetaminophen 325 Mg Tablet PO 11/21/22 07:31 975 mg ONCE ONE Administration Sodium Chloride 1,000 mls @ 999 mls/hr 11/21/22 07:30 11/21/22 07:39 Ns IV 11/21/22 08:30 999 mls/hr .Q1H1M MARAL Administration Metoclopramide HCl 10 mg 11/21/22 07:30 11/21/22 07:39 Metoclopramide Hcl 10 Mg/2 Ml Vial IVPUSH 11/21/22 07:31 10 mg ONCE ONE Administration Medical Decision Making Medical Decision Making [facility] Narrative: 37-year-old female with bipolar disorder, migraine headaches presents with a syncopal event. Patient did hit her head. She does described a moderate to severe headache on the left side. This is mostly consistent with her migraine headache. However, given headache and trauma, oral out will rule out intracranial bleeding obtain a CT scan of the head. In addition, would like to rule out other causes syncope which could include anemia, electrolyte abnormalities such as glycemia related issues, electrolyte abnormalities such as hyponatremia, hypokalemia, hypernatremia, dehydration. Will obtain an EKG to rule out cardiac dysrhythmia. I will provide the patient with IV fluids, Reglan and Tylenol. Will re-evaluate patient following imaging studies. Differential Diagnosis Differential Diagnoses: The differential diagnosis associated with the presentation includes (See above) Admission/Observation Consideration of admission/observation: Escalation of care including admission/observation considered Lab Data [facility] Lab Attestation statement: I reviewed the patient's lab results. 11/21/22 04:36 11/21/22 04:36 Labs: Lab Results 11/21/22 11/21/22 11/21/22 Range/Units 04:36 04:36 04:36 WBC 6.4 (4.8-10.8) X10*3/uL RBC 4.14 L (4.20-5.50) X10*6/uL Hgb 12.7 (12.0-16.0) g/dl Hct 37.0 (37.0-47.0) % MCV 89.4 (80.0-98.0) fL MCH 30.7 (27.0-33.0) pg MCHC 34.3 (31.0-35.0) g/dl RDW 12.7 (11.0-16.0) % Plt Count 287 (160-400) X10*3/uL MPV 9.3 L (9.4-12.3) fL Immature Gran % (Auto) 0.2 (0.0-0.4) % Neut % (Auto) 63.3 (45-73) % Lymph % (Auto) 27.3 (20-40) % Sawyer % (Auto) 8.6 (2-11) % Eos % (Auto) 0.3 (0-4) % Baso % (Auto) 0.3 (0-2) % Lymph # (Auto) 1.8 (1.2-4.9) X10*3/uL Sawyer # (Auto) 0.6 (0.1-1.2) X10*3/uL Eos # (Auto) 0.0 (0.0-0.4) X10*3/uL Baso # (Auto) 0.0 (0.0-0.2) X10*3/uL Abs Immat Gran (auto) 0.01 (0.00-0.03) X10*3/uL Absolute Neuts (auto) 4.1 (2.0-8.3) x10*3/uL Absolute Nucleated RBC 0.000 (0.0-0.012) X10*3/uL Nucleated RBC % (auto) 0.0 (0.0-0.2) /100WBC Sodium 136 (135-145) mmol/L Potassium 3.5 D (3.3-5.1) mmol/L Chloride 107 (96-108) mmol/L Carbon Dioxide 17 L (22-29) mmol/L Anion Gap 16 (12-20) BUN 15 (9-16) mg/dL Creatinine 0.78 (0.5-1.4) mg/dL Estim Creat Clear Calc 92.4 Estimated GFR > 60 Random Glucose 123 H (60-115) mg/dL Calcium 8.9 (8.4-10.2) mg/dL Troponin I High Sens < 2.7 (<3.5-17.0) ng/L Urine Color Urine Appearance Urine pH (5.0-9.0) Ur Specific Boutte (1.005-1.025) Urine Protein (Neg-Trace) mg/dL Urine Glucose (UA) (Negative) mg/dL Urine Ketones (Negative) mg/dL Urine Blood (Negative) Urine Nitrite (Negative) Ur Leukocyte Esterase (Negative) Urine Test (NEGATIVE) 11/21/22 11/21/22 Range/Units 05:52 05:53 WBC (4.8-10.8) X10*3/uL RBC (4.20-5.50) X10*6/uL Hgb (12.0-16.0) g/dl Hct (37.0-47.0) % MCV (80.0-98.0) fL MCH (27.0-33.0) pg MCHC (31.0-35.0) g/dl RDW (11.0-16.0) % Plt Count (160-400) X10*3/uL MPV (9.4-12.3) fL Immature Gran % (Auto) (0.0-0.4) % Neut % (Auto) (45-73) % Lymph % (Auto) (20-40) % Sawyer % (Auto) (2-11) % Eos % (Auto) (0-4) % Baso % (Auto) (0-2) % Lymph # (Auto) (1.2-4.9) X10*3/uL Sawyer # (Auto) (0.1-1.2) X10*3/uL Eos # (Auto) (0.0-0.4) X10*3/uL Baso # (Auto) (0.0-0.2) X10*3/uL Abs Immat Gran (auto) (0.00-0.03) X10*3/uL Absolute Neuts (auto) (2.0-8.3) x10*3/uL Absolute Nucleated RBC (0.0-0.012) X10*3/uL Nucleated RBC % (auto) (0.0-0.2) /100WBC Sodium (135-145) mmol/L Potassium (3.3-5.1) mmol/L Chloride (96-108) mmol/L Carbon Dioxide (22-29) mmol/L Anion Gap (12-20) BUN (9-16) mg/dL Creatinine (0.5-1.4) mg/dL Estim Creat Clear Calc Estimated GFR Random Glucose (60-115) mg/dL Calcium (8.4-10.2) mg/dL Troponin I High Sens (<3.5-17.0) ng/L Urine Color Yellow Urine Appearance Clear Urine pH 6.0 (5.0-9.0) Ur Specific Boutte <= 1.005 (1.005-1.025) Urine Protein Negative (Neg-Trace) mg/dL Urine Glucose (UA) Negative (Negative) mg/dL Urine Ketones Negative (Negative) mg/dL Urine Blood Negative (Negative) Urine Nitrite Negative (Negative) Ur Leukocyte Esterase Negative (Negative) Urine Test NEGATIVE (NEGATIVE) Reviewed lab work. Abnormalities that are of note, mild hyperglycemia Independent Interpretation I performed an independent interpretation of an: EKG (Sinus tachycardia heart rate 109, QTC 517, no acute ST elevations depressions, no comparison) and CT Scan (head no acute findings) Radiology Impression Discussion of test interpretation with radiology: I have reviewed the radio logist's reading. Radiologist Impression: CT/CT head/brain wo IV con IMPRESSION: No acute intracranial pathology. Dictated By: Gaston Shaikh MD Signed By: <Electronically signed by Gaston Shaikh MD in OV> 11/21/22 0821 Independent Historian Clinical information obtained from an independent historian. History obtained from or confirmed by: Spouse and EMS Discharge Plan Discharge Clinical Impression: Syncope, Headache Patient Disposition: Home, Self-Care Instructions: Syncope (ED), Acute Headache (ED) Prescriptions: No Action albuterol sulfate 1.25 mg/3 mL solution for nebulization 1.25 mg inhalation QID PRN (Reason: shortness of breath or wheezing) 30 Days Qty: 90 4RF albuterol sulfate [ProAir HFA] 90 mcg/actuation HFA aerosol inhaler 2 puff inhalation Q6H PRN (Reason: for dyspnea) Qty: 8.5 11RF fluticasone propionate 50 mcg/actuation spray,suspension 2 spray intranasal DAILY Qty: 48 1RF ibuprofen 600 mg tablet 600 mg PO Q6H PRN (Reason: fever or pain) Qty: 30 0RF fluvoxamine 150 mg capsule,extended release 24hr 150 mg PO BEDTIME pyridoxine (vitamin B6) 100 mg tablet 50 mg PO DAILY 90 Days Qty: 45 2RF cetirizine 10 mg tablet 10 mg PO DAILY lorazepam 0.5 mg tablet 0.5 mg PO DAILY PRN (Reason: anxiety) Referrals: Amelia Falcon NP [Primary Care Provider] - 2 days Stand Alone Forms: Work/School Release
[2022-11-21 07:36] VITALS: BP 135/80; PULSE 112; RESP 19; TEMP 36.6; O2SAT 99
[2022-11-21] MEDS: Acetaminophen 325 MG TABLET 975 MG PO (07:38)
[2022-11-21] MEDS: Metoclopramide HCl 10 MG/2 ML VIAL IVPUSH (07:39)
[2022-11-21] MEDS: 0.9 % Sodium Chloride 1,000 ML 999 ML IV (07:39)
--- NOTE | 2022-11-21 07:47 | PC.NURSE ---
patient resting in bed, resp equal and unlabored. a & o x3
[2022-11-21 08:05] VITALS: BP 127/73; PULSE 91; RESP 16; TEMP 36.9; O2SAT 99
[2022-11-21 09:13] VITALS: BP 137/83; PULSE 85; RESP 16; O2SAT 97
== END 2022-11-21 09:28 | disposition home or self-care (01) ==
PROVIDERS: Emergency Provider Emergency Medicine; PCP Hospitalist
DX: R55 Syncope and collapse (principal); R42 Dizziness and giddiness; R51.9 Headache, unspecified; Z79.899 Other long term (current) drug therapy
CPT/HCPCS: 36415; 70450; 80048; 81003; 81025; 84484; 85025; 93005; 96361; 96374; 99284; 99285; J2765

== ENCOUNTER → 2022-11-21 04:30 | Outpatient (BNV) | payer OTHER, SELFPAY | PROVIDERS: Emergency Provider Emergency Medicine; PCP Hospitalist; Visit Provider Internal Medicine Cardiovascular Disease | DX: R00.0 Tachycardia, unspecified (principal) | CPT/HCPCS: 93010 ==

== ENCOUNTER 2022-11-28 10:10 | Outpatient (AMB) | payer OTHER, SELFPAY ==
--- NOTE | 2022-11-28 10:12 | A.OFFPC_ITS ---
Vital Signs 11/28/22 10:14 Height 5 ft 6 in Weight 140 lb 4 oz BMI 22.6 BP 94/60 Blood Pressure Location Lt brachial Position Sitting Respiration 12 Pulse 69 Pulse Source Pulse Oximeter Temp 98.3 F Temp Source Temporal Artery Scan Pulse Oximetry (%) 99 Oxygen Delivery Method Room Air Intake Visit Reasons: [id number] Food Services Director Required: No Accompanied by: Self / Same As Patient Allergies lactose Allergy (Severe, Verified 11/28/22 11:02) Diarrhea Penicillins Allergy (Severe, Verified 11/28/22 11:02) Swelling bupropion Allergy (Intermediate, Verified 11/28/22 11:02) Rash grass pollen Allergy (Intermediate, Verified 11/28/22 11:02) watery eyes, sneezing aripiprazole Allergy (Unknown, Verified 11/28/22 11:02) unknown azithromycin Allergy (Unknown, Verified 11/28/22 11:02) Unknown lamotrigine Allergy (Unknown, Verified 11/28/22 11:02) Unknown oxcarbazepine Allergy (Unknown, Verified 11/28/22 11:02) Rash gabapentin Adverse Reaction (Severe, Verified 11/28/22 11:02) dizziness unable to take Medication List - Last Reviewed 11/28/22 by Mirna Alex MA albuterol sulfate 90 mcg/actuation (ProAir HFA) 2 puffs inhalation Q6H PRN albuterol sulfate 1.25 mg (3 mL) inhalation QID PRN 1 month albuterol sulfate 90 mcg/actuation (Ventolin HFA) 2 puffs inhalation Q6H PRN cetirizine 10 mg PO DAILY fluticasone propionate 50 mcg/actuation 2 sprays intranasal DAILY fluvoxamine ER 150 mg PO BEDTIME lorazepam 0.5 mg PO DAILY PRN pyridoxine (vitamin B6) 50 mg (1/2 x 100 mg) PO DAILY 90 days Tobacco use date assessed: 11/28/22 Dental Screening Dental Screen Date: 11/28/22 Did you have a dental visit in the last 12 months?: Yes Did you have a dental problem in the last 6 months where you did not have access to dental care?: Yes Was dental information given to patient?: Patient has dentist HPI HPI Comments History of Present Illness Details 37-year-old female presents for recent ED visit follow-up. She was evaluated and treated at [facility] ED on 11/21/22 for headache, dizziness, and lightheadedness. Review of labs and imaging were unremarkable. She reports continued intermittent headache and lightheadedness. She notes that headache is usually on one side of her head. She notes that she recently had her glasses adjusted. She denies visual disturbances. She denies chest pain. [facility] Medical History History of postoperative nausea Low back pain Renal calculi Surgical History History of mandibular surgery History of shoulder surgery Hx of colonoscopy Hx of tubal ligation Family History Paternal Aunt Bipolar 1 disorder Maternal Grandmother Bipolar 1 disorder Mother Heart disease Other Mental health disorder Social History Housing: Apartment Are you a primary health care marketing manager to a significant other at home: Yes (2 children) Do you presently have visiting nurse or other home services: No Alcohol intake: current Alcohol intake frequency: holidays/special occasions only Patient Tobacco Use Status: Never used Tobacco e-Cigarette/Vaping Use: Never Used Second Hand Smoke Exposure: No Advance Directives Date on File: 03/22/22 service: No Current occupational status: employed 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 Royal Pereyra, Shivani Clifton, Dallin Lee and colleagues, with an educational jann from [email or web address]. Review of Systems Const Details: Const Denies chills, Denies fatigue, Denies fever(s), Reports headache(s) and Denies weakness ENT Reports dizziness/lightheadedness and Reports headache(s) Card Denies chest pain, Denies lightheadedness, Denies dyspnea and Denies other (Palpitations) Resp Denies cough, Denies dyspnea, Denies wheezing and Denies other ( shortness of breath) GI Denies abdominal pain, Denies melena, Denies hematochezia, Denies change in bowel habits, Denies dyspepsia and Denies nausea Denies hematuria and Denies dysuria Musc Denies abnormal gait, Denies myalgias, Denies arthralgias, Denies numbness and Denies tingling Skin/Breast Denies rash, Denies unusual bruising and Denies wounds Neuro Denies abnormal gait, Denies dizziness, Reports headache(s), Denies memory loss, Denies numbness, Denies Sensory deficit (Neuro), Denies tingling and Denies weakness Psych Denies anxiety and Denies depression Endo Denies fatigue Aller/Immun Denies wheezing Physical exam (Primary Care) Vital Signs: Last Vital Signs Temp 98.3 F 11/28/22 10:14 Pulse 69 11/28/22 10:14 Resp 12 11/28/22 10:14 BP 94/60 11/28/22 10:14 Pulse Ox 99 11/28/22 10:14 Oxygen Delivery Method Room Air 11/28/22 10:14 BMI result Body Mass Index 22.6 Tobacco/Smoking Status: Tobacco use Status Tobacco use date assessed 11/28/22 11/28/22 10:22 Patient Tobacco Use Status Never used Tobacco 11/28/22 10:22 e-Cigarette/Vaping Use Never Used 11/28/22 10:22 Thrive Assessment: Date of Thrive Assessment Date Thrive assessed 07/19/21 11/28/22 10:22 Const Other: General: no acute distress and well developed Nutritional Appearance: well nourished Orientation/consciousness: patient oriented x3 HENMT Head: Yes normocephalic and Yes atraumatic Eyes General: appearance normal, both eyes and all related structures Pupils: Equal, round and reactive pupils present EOM: EOMs intact bilaterally Resp Effort & Inspection: normal respiratory effort Auscultation: clear to auscultation bilaterally Cardio Rate: regular rate Rhythm: regular rhythm Heart sounds: S1 normal heart sound present, S2 normal heart sound present, no gallops, no murmurs and no rubs GI Palpation (GI): No Abdominal aortic bruit present, Soft to palpation, nontender, No hepatosplenomegaly present and No Rebound tenderness present Auscultation: normal bowel sounds General: Yes no CVA tenderness Back/Spine/Pelvis Back: no CVA tenderness Cervical Spine: cervical ROM normal and No Cervical spine tenderness Thoracic/Lumbar Spine: thoraco-lumbar ROM normal, No pain with thoraco-lumbar ROM, No thoracic spinal tenderness and No lumbar spinal tenderness Extrem General: Yes normal to inspection, No edema and No calf tenderness Skin General: warm and dry. Normal skin color. Normal skin turgor Lesions: no lesions Rashes: no rashes Trauma: no lacerations or abrasions Wounds: no wounds Nails: normal Neuro General: patient oriented x3, gait normal and no focal neuro deficit Cranial nerves: Yes Equal, round and reactive pupils present Cognition (Neuro): normal cognition Gait exam (Neuro): Normal gait present Sensory Exam: No Sensory deficit (Neuro) Psych Affect: normal affect Assessment and Plan Assessment & Plan (1) Headache: Code(s): R51.9 - Headache, unspecified Plan: Likely migraines or tension headaches Sumatriptan ordered. Take as prescribed Adequate hydration encouraged Follow-up with PCP as planned or return sooner with worsening or new symptoms Verbalized understanding and agreed with treatment plan (2) Dizziness: Code(s): R42 - Dizziness and giddiness Plan: As above (3) Lightheadedness: Code(s): R42 - Dizziness and giddiness Plan: As above Medications: New sumatriptan succinate take 1 tab at onset of headache; if no relief may repeat 1 tab after at least 2 hrs; max = 4 tabs/24 hr PO 30 days 30 tabs 0RF albuterol sulfate 90 mcg/actuation (Ventolin HFA) 2 puffs inhalation Q6H PRN 8.5 grams 4RF shortness of breath or wheezing Discontinued albuterol sulfate 90 mcg/actuation (ProAir HFA) Discontinued Reason: Insurance Denied 2 puffs inhalation Q6H PRN 8.5 ea 11RF for dyspnea Coding Level of Care Code Est Pt Level 3 (44362) Diagnoses Headache R51.9 Dizziness R42 Lightheadedness R42 Time Spent (min) 25
[2022-11-28 10:14] VITALS: BP 94/60; PULSE 69; RESP 12; TEMP 36.8; O2SAT 99; BMI 22.6
== END 2022-11-28 11:23 | disposition home or self-care (01) ==
PROVIDERS: PCP Hospitalist; Visit Provider Nurse Practitioner Family
DX: R51.9 Headache, unspecified (principal); R42 Dizziness and giddiness
CPT/HCPCS: 99213

== ENCOUNTER 2023-01-15 10:02 | Outpatient (REF) | payer OTHER, SELFPAY ==
--- NOTE | ~2023-01-15 | US_ITS ---
EXAMINATION: US RETROPERITONEAL LIMITED (RENAL ONLY) CLINICAL INFORMATION: Calculus of kidney. COMPARISON: Ultrasound retroperitoneal limited (renal only) 07/17/2022. TECHNIQUE: Real-time imaging of the kidneys. FINDINGS: RIGHT KIDNEY: 13.3 x 6.3 x 4.4 cm (SAG x AP x TRV). The kidney is normal in size, contour, and echogenicity. Renal cortical thickness is normal. No calculi or focal parenchymal lesions. Pelviectasis without kimberly hydronephrosis. LEFT KIDNEY: 13.2 x 5.4 x 4.9 cm (SAG x AP x TRV). The kidney is normal in size, contour, and echogenicity. Renal cortical thickness is normal. No calculi or focal parenchymal lesions. No hydronephrosis. US/US renal BI IMPRESSION: Right renal pelviectasis without kimberly hydronephrosis. No nephrolithiasis appreciated.
== END 2023-01-15 10:03 | disposition home or self-care (01) ==
LOC: HO.US 10:02
PROVIDERS: PCP Hospitalist; Visit Provider Nurse Practitioner Family
DX: N20.0 Calculus of kidney (principal)
CPT/HCPCS: 76775

== ENCOUNTER 2023-02-01 13:43 | Outpatient (AMB) | payer OTHER, SELFPAY ==
--- NOTE | 2023-02-01 13:43 | MHC.OFFVIS ---
Intake Intake Visit Reasons: 6m/US(set) Intake Note: Patient presents for follow up nephrolithiasis/ultrasound (imaging 01/15/23) Urology Medications: Vitamin B6 Blood Thinner: none Hearing Aid Repair Technician Required: No Allergies lactose Allergy (Severe, Verified 02/01/23 21:21) Diarrhea Penicillins Allergy (Severe, Verified 02/01/23 21:21) Swelling bupropion Allergy (Intermediate, Verified 02/01/23 21:21) Rash grass pollen Allergy (Intermediate, Verified 02/01/23 21:21) watery eyes, sneezing aripiprazole Allergy (Unknown, Verified 02/01/23 21:21) unknown azithromycin Allergy (Unknown, Verified 02/01/23 21:21) Unknown lamotrigine Allergy (Unknown, Verified 02/01/23 21:21) Unknown oxcarbazepine Allergy (Unknown, Verified 02/01/23 21:21) Rash gabapentin Adverse Reaction (Severe, Verified 02/01/23 21:21) dizziness unable to take Medication List - Last Reconciled 02/01/23 by MARK Fuchs albuterol sulfate 90 mcg/actuation (Ventolin HFA) 2 puffs inhalation Q6H PRN albuterol sulfate 1.25 mg (3 mL) inhalation QID PRN 1 month cetirizine 10 mg PO DAILY fluticasone propionate 50 mcg/actuation 2 sprays intranasal DAILY fluvoxamine ER 150 mg PO BEDTIME lorazepam 0.5 mg PO DAILY PRN pyridoxine (vitamin B6) 50 mg (1/2 x 100 mg) PO DAILY 90 days HPI HPI Comments History of Present Illness Details Hattie is a pleasant 37 year old female patient of Dr. Falcon. She is being followed-up on today via video telehealth for her history of nephrolithiasis. Recent renal imaging results reviewed with the patient today. Right kidney with no calculi, or lesions noted. Pelviectasis without kimberly hydronephrosis. Left kidney with no calculi, lesions, and or hydronephrosis noted. In discussion with the patient today she reports to be feeling and doing well. She reports compliance with vitamin B6 daily and adding lemon juice to her water. She reports to be drinking plenty of water daily. She denies any urinary issues or concerns. When asked she denies urinary urgency, urinary frequency, incontinence, nocturia, hematuria, dysuria, foul smelling urine, changes to urinary stream, flank pain, fever, and or chills. She is happy with her current voiding parameters. She otherwise offers no other issues or concerns at this time. [facility] Medical History History of postoperative nausea Low back pain Renal calculi Surgical History History of mandibular surgery Hx of colonoscopy Hx of tubal ligation History of shoulder surgery Family History Paternal Aunt Bipolar 1 disorder Maternal Grandmother Bipolar 1 disorder Mother Heart disease Other Mental health disorder Social History Housing: Apartment Are you a primary healthcare advisory services manager to a significant other at home: Yes (2 children) Do you presently have visiting nurse or other home services: No Alcohol intake: current Alcohol intake frequency: holidays/special occasions only Patient Tobacco Use Status: Never used Tobacco e-Cigarette/Vaping Use: Never Used Second Hand Smoke Exposure: No Advance Directives Date on File: 03/22/22 service: No Current occupational status: employed 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 [employer] Cognitive needs: No Hearing needs: No Vision needs: Yes (Glasses) Review of Systems Const All systems reviewed & are unremarkable except as noted in HPI and below Reports no additional complaints Eyes Reports no additional complaints ENT Reports no additional complaints Card Reports no additional complaints Resp Reports no additional complaints GI Reports no additional complaints Reports as per HPI Musc Reports no additional complaints Neuro Reports no additional complaints Psych Reports no additional complaints Endo Reports no additional complaints Ron/Lymph Reports no additional complaints Aller/Immun Reports no additional complaints Physical Exam Const General: cooperative, healthy appearing, comfortable, no acute distress, well developed, alert and awake Orientation/consciousness: patient oriented x3 Resp Effort & Inspection: normal respiratory effort and able to speak in complete sentences Neuro General: patient oriented x3 Psych Appearance: grossly normal Mental Status: mental status grossly normal Speech and movement: Clear speech present Affect: normal affect Attitude: cooperative Thought process: Normal thought process present Thought content: Normal thought content present Insight: Good insight present (Psych) Judgement: Good judgement present (Psych) Results Reviewed Results Reviewed: Date of Service: 01/15/23 Procedure(s): US renal BI FINDINGS: RIGHT KIDNEY: 13.3 x 6.3 x 4.4 cm (SAG x AP x TRV). The kidney is normal in size, contour, and echogenicity. Renal cortical thickness is normal. No calculi or focal parenchymal lesions. Pelviectasis without kimberly hydronephrosis. LEFT KIDNEY: 13.2 x 5.4 x 4.9 cm (SAG x AP x TRV). The kidney is normal in size, contour, and echogenicity. Renal cortical thickness is normal. No calculi or focal parenchymal lesions. No hydronephrosis. IMPRESSION: Right renal pelviectasis without kimberly hydronephrosis. No nephrolithiasis appreciated. Assessment & Plan Assessment & Plan (1) Renal calculi: Code(s): N20.0 - Calculus of kidney Plan Recent renal ultrasound results reviewed with the patient today; as noted above. Educated, encouraged, instructed on importance of continuing to drink plenty of water daily. Continue vitamin B6 as discussed and prescribed. Continue adding 1 oz of lemon juice to water daily. Patient denies any bothersome urinary issues or concerns at this time. Patient reports be happy with current voiding parameters. Renal ultrasound in 1 year. Follow-up in 1 year with imaging to be completed prior; or sooner with any issues, concerns, and or questions. Orders: Orders US retroperitoneal comp 364 Days N20.0 - Calculus of kidney Medications: Refilled pyridoxine (vitamin B6) 50 mg (1/2 x 100 mg) PO DAILY 45 tabs 2RF 90 days Patient Instructions: The patient had an opportunity to ask questions regarding the treatment plan. All questions were answered. Physical exam, labs, and imaging were discussed and reviewed in detail. As well as risks, benefits, and discussion of treatment choices. No major barriers to understanding were identified. The patient expressed understanding and agreement with the above treatment plan. The patient was made aware they should contact our office by phone for worsening of their current condition, the appearance of new symptoms, or with any questions or concerns. Compliance is encouraged with any medications and follow up testing that is ordered. It is a privilege to be allowed the opportunity to participate in? your urological care.? Again, if you have any questions or concerns If you have any questions or concerns please do not hesitate to contact me. The office is [phone]. This note is constructed using voice recognition software. While every effort has been made to ensure accuracy boring machine operator vertical errors may have been included. Yours sincerely, FLO FuchsP- Telehealth Telehealth Location of provider rendering services: practice address Location of patient: address on file Patient Identification confirmed using: Name, : Yes Telehealth method: video Patient verbally consented to treatment: Yes Patient verbally consented to billing insurance company: Yes Patient informed of any privacy concerns related to visit: Yes Minutes spent on Phone/Video with Pt.: 15 Coding Level of Care Code Tele Est Pt Level 3 (59278) Diagnoses Renal calculi N20.0
== END 2023-02-01 15:37 | disposition home or self-care (01) ==
LOC: HO.HUSH 13:43
PROVIDERS: PCP Hospitalist; Visit Provider Nurse Practitioner Family
DX: N20.0 Calculus of kidney (principal)
CPT/HCPCS: 99213

== ENCOUNTER → 2023-02-01 13:43 | Outpatient (BNVA) | payer OTHER, SELFPAY | PROVIDERS: PCP Hospitalist; Visit Provider Nurse Practitioner Family ==

== ENCOUNTER 2024-01-15 14:15 | Outpatient (REF) | payer MEDICAID, SELFPAY ==
--- NOTE | ~2024-01-15 | US_ITS ---
EXAMINATION: US RETROPERITONEAL LIMITED (RENAL ONLY) CLINICAL INFORMATION: Calculus of kidney. COMPARISON: Renal ultrasound 01/15/2023 and 07/17/2022. X-ray abdomen KUB 06/21/[address]22 [address] 03/22/2022. CT abdomen and pelvis 02/09/2022. TECHNIQUE: Real-time imaging of the kidneys. FINDINGS: RIGHT KIDNEY: 12.4 x 3.5 x 3.9 cm (SAG x AP x TRV). The kidney is normal in size, contour, and echogenicity. Renal cortical thickness is normal. Mid and lower pole 3 mm echogenic foci are seen consistent with nonobstructing calculi, not seen at the time of the prior ultrasound study. No focal parenchymal lesions or hydronephrosis. LEFT KIDNEY: 12.4 x 5.4 x 4.5 cm (SAG x AP x TRV). The kidney is normal in size, contour, and echogenicity. Renal cortical thickness is normal. No calculi or focal parenchymal lesions. The stone seen on the prior CT urogram is not identified on this exam. No hydronephrosis. US/US renal BI IMPRESSION: Nonobstructing right renal calculi. Electronically signed by: Shane Steele MD 01/30/2024 12:46 AM EDT
== END 2024-01-15 14:16 | disposition home or self-care (01) ==
LOC: HO.US 14:15
PROVIDERS: PCP Internal Medicine; Visit Provider Nurse Practitioner Family
DX: N20.0 Calculus of kidney (principal)
CPT/HCPCS: 76775

== ENCOUNTER 2024-01-17 14:53 | Outpatient (REF) | payer MEDICAID, SELFPAY ==
--- NOTE | ~2024-01-17 | US_ITS ---
EXAMINATION: US PELVIS LIMITED (BLADDER) CLINICAL INFORMATION: Renal calculi. COMPARISON: Renal ultrasound 01/15/2024 and 01/15/2023. X-ray abdomen KUB 06/21/2022 and 03/22/2022. CT urogram 02/09/2022. TECHNIQUE: Real-time imaging of the bladder. FINDINGS: BLADDER: Well distended and normal. Bilateral ureteral jets are demonstrated. Prevoid bladder volume is 273 mL. Postvoid bladder volume is 6.4 mL. US/US bladder IMPRESSION: Normal-appearing bladder with 6.4 mL postvoid residual. Electronically signed by: Shane Steele MD 01/20/2024 11:25 AM EDT
== END 2024-01-17 14:54 | disposition home or self-care (01) ==
LOC: HO.US 14:53
PROVIDERS: PCP Internal Medicine; Visit Provider Nurse Practitioner Family
DX: N20.0 Calculus of kidney (principal)
CPT/HCPCS: 76857

== ENCOUNTER 2024-03-24 16:05 | Outpatient (AMB) | payer MEDICAID, SELFPAY ==
--- NOTE | 2024-03-24 16:05 | A.OFFVIS_ITS ---
Intake Visit Reasons: 6m follow up/US(set) Intake Note: Patient presents today for follow up on: nephrolithiasis and ultrasound results Imaging Completed: 01/17/24 Urology Medications: Vitamin B6 Blood Thinner: none Photoradio Operator Required: No Allergies lactose Allergy (Severe, Verified 03/24/24 16:28) Diarrhea Penicillins Allergy (Severe, Verified 03/24/24 16:28) Swelling bupropion Allergy (Intermediate, Verified 03/24/24 16:28) Rash grass pollen Allergy (Intermediate, Verified 03/24/24 16:28) watery eyes, sneezing aripiprazole Allergy (Unknown, Verified 03/24/24 16:28) unknown azithromycin Allergy (Unknown, Verified 03/24/24 16:28) Unknown lamotrigine Allergy (Unknown, Verified 03/24/24 16:28) Unknown oxcarbazepine Allergy (Unknown, Verified 03/24/24 16:28) Rash gabapentin Adverse Reaction (Severe, Verified 03/24/24 16:28) dizziness unable to take Medication List - Last Reconciled 03/24/24 by MARK Fuchs albuterol sulfate 90 mcg/actuation (Ventolin HFA) 2 puffs inhalation Q6H PRN albuterol sulfate 1.25 mg (3 mL) inhalation QID PRN 1 month cetirizine 10 mg PO DAILY fluticasone propionate 50 mcg/actuation 2 sprays intranasal DAILY fluvoxamine mg PO lorazepam 0.5 mg PO DAILY PRN pyridoxine (vitamin B6) 50 mg (1/2 x 100 mg) PO DAILY 90 days HPI Comments Details: Hattie is a pleasant 38 year old female patient of Dr. Falcon. She presents to the office today for follow-up of her nephrolithiasis. Recent renal imaging results reviewed with the patient today. Bilateral kidneys are normal in size, contour, and echogenicity. Mid and lower pole 3 mm echogenic foci are seen consistent with nonobstructing calculi not seen on prior imaging 6 months ago. Left kidney with no calculi or hydronephrosis. The bladder is well distended and normal. Pre void bladder volume is a proximally 275 mL. Postvoid bladder volume is approximally 5 mL. When asked she does report compliance with vitamin B6 daily, adding lemon juice to water daily and adequate hydration. She does report intermittent episodes of right-sided flank pain at times. She otherwise denies any bothersome urinary issues or concerns. She denies urinary urgency, urinary frequency, incontinence, nocturia, hematuria, dysuria, foul smelling urine, changes to urinary stream, fever, and or chills. She is happy with her current voiding parameters. She otherwise offers no other issues or concerns at this time. [facility] Medical History History of postoperative nausea Low back pain Renal calculi Surgical History History of mandibular surgery Hx of colonoscopy Hx of tubal ligation History of shoulder surgery Family History Paternal Aunt Bipolar 1 disorder Maternal Grandmother Bipolar 1 disorder Mother Heart disease Other Mental health disorder Social History Housing: Apartment Are you a primary direct care provider to a significant other at home: Yes (2 children) Do you presently have visiting nurse or other home services: No Alcohol intake: current Alcohol intake frequency: holidays/special occasions only Patient Tobacco Use Status: Never used Tobacco e-Cigarette/Vaping Use: Never Used Second Hand Smoke Exposure: No Advance Directives Date on File: 03/22/22 service: No Current occupational status: employed 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 [employer] Cognitive needs: No Hearing needs: No Vision needs: Yes (Glasses) Review of Systems Const All systems reviewed & are unremarkable except as noted in HPI and below Reports no additional complaints Eyes Reports no additional complaints ENT Reports no additional complaints Card Reports no additional complaints Resp Reports no additional complaints GI Reports no additional complaints Reports as per HPI Musc Reports no additional complaints Neuro Reports no additional complaints Psych Reports no additional complaints Endo Reports no additional complaints Ron/Lymph Reports no additional complaints Aller/Immun Reports no additional complaints Physical Exam Const General: cooperative, healthy appearing, comfortable, no acute distress, well developed, alert and awake Nutritional Appearance: average body habitus Orientation/consciousness: patient oriented x3 Limitations: no limitations HEENT Head: Yes normal to inspection, Yes normocephalic and Yes atraumatic Ears: hearing grossly normal bilaterally Eyes General: appearance normal, both eyes and all related structures Neck Neck: Yes normal visual inspection and Yes trachea midline Chest Chest palpation & inspection: normal inspection of the chest Resp Effort & Inspection: normal respiratory effort and able to speak in complete sentences Cardio Rate: regular rate GI Inspection: Yes normal to inspection General: Yes no CVA tenderness Back/Spine/Pelvis Back: no CVA tenderness Skin General skin exam: no rashes or lesions noted Neuro General: patient oriented x3 Extrem General: Yes normal to inspection Psych Appearance: grossly normal Mental Status: mental status grossly normal Speech and movement: Clear speech present Affect: normal affect Attitude: cooperative Thought process: Normal thought process present Thought content: Normal thought content present Insight: Fair insight present (Psych) Judgement: Fair judgement present (Psych) Results AMB Urinalysis, Automated UA Leukoctes 0 Deandre/uL Last Edit by Wowboard on 03/24/24 16:23 UA Nitrite Negative Last Edit by Wowboard on 03/24/24 16:23 UA Urobilinogen 0.2 mg/dL Last Edit by Wowboard on 03/24/24 16:23 UA Protein 15 mg/dL Last Edit by Wowboard on 03/24/24 16:23 UA pH 8.0 Last Edit by Wowboard on 03/24/24 16:23 UA Blood 0 Mario/uL Last Edit by Wowboard on 03/24/24 16:23 UA Specific [place] 1.010 Last Edit by Wowboard on 03/24/24 16:23 UA Ketone Positive Last Edit by Wowboard on 03/24/24 16:23 UA Bilirubin 0 mg/dL Last Edit by Wowboard on 03/24/24 16:23 UA Glucose 0 mg/dL Last Edit by Wowboard on 03/24/24 16:23 Results Reviewed Results Reviewed: Date of Service: 01/17/24 EXAMINATION: US PELVIS LIMITED (BLADDER) FINDINGS: BLADDER: Well distended and normal. Bilateral ureteral jets are demonstrated. Prevoid bladder volume is 273 mL. Postvoid bladder volume is 6.4 mL. IMPRESSION: Normal-appearing bladder with 6.4 mL postvoid residual. Date of Service: 01/15/24 EXAMINATION: US RETROPERITONEAL LIMITED (RENAL ONLY) FINDINGS: RIGHT KIDNEY: 12.4 x 3.5 x 3.9 cm (SAG x AP x TRV). The kidney is normal in size, contour, and echogenicity. Renal cortical thickness is normal. Mid and lower pole 3 mm echogenic foci are seen consistent with nonobstructing calculi, not seen at the time of the prior ultrasound study. No focal parenchymal lesions or hydronephrosis. LEFT KIDNEY: 12.4 x 5.4 x 4.5 cm (SAG x AP x TRV). The kidney is normal in size, contour, and echogenicity. Renal cortical thickness is normal. No calculi or focal parenchymal lesions. The stone seen on the prior CT urogram is not identified on this exam. No hydronephrosis. IMPRESSION: Nonobstructing right renal calculi. Assessment & Plan Assessment & Plan (1) Nephrolithiasis: Code(s): N20.0 - Calculus of kidney Category: Medical (2) Renal calculi: Code(s): N20.0 - Calculus of kidney Category: Medical Plan In office urinalysis results reviewed with the patient today; as noted above. Recent renal imaging results reviewed with the patient today; as noted above. Discussed importance of continuing adequate hydration, vitamin B6, and adding 1 oz of lemon juice to water daily. Will continue with surveillance monitoring at this time given decreased stone burden. She otherwise denies any bothersome urinary issues. She reports be happy with current voiding parameters. Will obtain renal ultrasound in 6 months. Follow-up in 6 months with imaging to be completed prior; or sooner with any issues, concerns, and or questions. Orders: Orders US renal BI 6 Months N20.0 - Calculus of kidney AMB Urinalysis Automated Today Z13.9 - Encounter for screening, unspecified Patient Instructions: The patient had an opportunity to ask questions regarding the treatment plan. All questions were answered. Physical exam, labs, and imaging were discussed and reviewed in detail. As well as risks, benefits, and discussion of treatment choices. No major barriers to understanding were identified. The patient expressed understanding and agreement with the above treatment plan. The patient was made aware they should contact our office by phone for worsening of their current condition, the appearance of new symptoms, or with any questions or concerns. Compliance is encouraged with any medications and follow up testing that is ordered. It is a privilege to be allowed the opportunity to participate in? your urological care.? Again, if you have any questions or concerns If you have any questions or concerns please do not hesitate to contact me. The office is [phone]. This note is constructed using voice recognition software. While every effort has been made to ensure accuracy group leader semiconductor testing errors may have been included. Yours sincerely, MARK Fuchs Coding Level of Care Code Est Pt Level 3 (12047) Diagnoses Nephrolithiasis N20.0
== END 2024-03-24 16:23 | disposition home or self-care (01) ==
PROVIDERS: PCP Hospitalist; Visit Provider Nurse Practitioner Family
DX: Z13.9 Encounter for screening, unspecified (principal); N20.0 Calculus of kidney
CPT/HCPCS: 99213

== ENCOUNTER → 2024-03-24 16:05 | Outpatient (BNVA) | payer MEDICAID, SELFPAY | PROVIDERS: PCP Hospitalist; Visit Provider Nurse Practitioner Family | DX: N20.0 Calculus of kidney (principal) | CPT/HCPCS: 81003; 99212 ==

== ENCOUNTER 2024-09-08 12:51 | Outpatient (REF) | payer MEDICAID, SELFPAY ==
--- NOTE | ~2024-09-08 | US_ITS ---
CLINICAL HISTORY: N20.0 - Calculus of kidney US RENAL Comparison: US/SR - US RENAL BI - 01/15/24 14:30 EDT Findings: Normal renal cortical thickness and echogenicity bilaterally. Mild fullness of the right renal collecting system with no kimberly hydronephrosis. No left hydronephrosis. Multiple tiny echogenic foci bilaterally with no significant shadowing. No cortical mass lesion. IMPRESSION: 1. No hydronephrosis. 2. Multiple tiny echogenic foci bilaterally, possible tiny stones. This document has been electronically signed by: Anay Leach DO on 09/09/2024 15:25:44
== END 2024-09-08 12:52 | disposition home or self-care (01) ==
LOC: HO.US 12:51
PROVIDERS: PCP Internal Medicine; Visit Provider Nurse Practitioner Family
DX: N20.0 Calculus of kidney (principal)
CPT/HCPCS: 76775

== ENCOUNTER → 2024-09-08 12:52 | Outpatient (BNV) | payer MEDICAID, SELFPAY | PROVIDERS: PCP Internal Medicine; Visit Provider Radiology Diagnostic Radiology | DX: N20.0 Calculus of kidney (principal) | CPT/HCPCS: 76775 ==

== ENCOUNTER 2024-09-22 14:02 | Outpatient (AMB) | payer MEDICAID, SELFPAY ==
--- NOTE | 2024-09-22 14:02 | MHC.OFFVIS ---
Intake Visit Reasons: 6 m/US(set) Intake Note: Pt presents to the office today for a 6 month follow up/Kidney stones/US Allergies lactose Allergy (Severe, Verified 09/22/24 14:03) Diarrhea Penicillins Allergy (Severe, Verified 09/22/24 14:03) Swelling bupropion Allergy (Intermediate, Verified 09/22/24 14:03) Rash grass pollen Allergy (Intermediate, Verified 09/22/24 14:03) watery eyes, sneezing aripiprazole Allergy (Unknown, Verified 09/22/24 14:03) unknown azithromycin Allergy (Unknown, Verified 09/22/24 14:03) Unknown lamotrigine Allergy (Unknown, Verified 09/22/24 14:03) Unknown oxcarbazepine Allergy (Unknown, Verified 09/22/24 14:03) Rash gabapentin Adverse Reaction (Severe, Verified 09/22/24 14:03) dizziness unable to take HPI Comments Details: Hattie is a pleasant 39 year old female patient of Dr. Falcon. She is being followed up on today via video telehealth for history of nephrolithiasis. In discussion with the patient today she reports to be doing and feeling well. She does note having had intermittent episodes of bilateral flank pain however feels at times they are self-limiting with increase in hydration. She does report noting increase flank pain with her menses. She otherwise denies any bothersome urinary issues. She denies urinary urgency, urinary frequency, incontinence, nocturia, hematuria, dysuria, foul smelling urine, changes to urinary stream, fever, and or chills. She is happy with her current voiding parameters. Recent renal imaging results reviewed with the patient today. 09/28 bilateral kidneys are normal in thickness and echogenicity. Mild fullness of the right renal collecting system with no kimberly hydronephrosis. No left hydronephrosis. Multiple tiny echogenic foci bilaterally with no significant shadowing. No cortical masses or lesions noted. When asked she does report compliance with vitamin B6 daily, adding lemon juice to water daily and adequate hydration. She otherwise offers no other issues or concerns at this time. [facility] Medical History History of postoperative nausea Low back pain Renal calculi Surgical History History of mandibular surgery Hx of colonoscopy Hx of tubal ligation History of shoulder surgery Family History Paternal Aunt Bipolar 1 disorder Maternal Grandmother Bipolar 1 disorder Mother Heart disease Other Mental health disorder Social History Housing: Apartment Are you a primary manager career to a significant other at home: Yes (2 children) Do you presently have visiting nurse or other home services: No Alcohol intake: current Alcohol intake frequency: holidays/special occasions only Patient Tobacco Use Status: Never used Tobacco e-Cigarette/Vaping Use: Never Used Second Hand Smoke Exposure: No Advance Directives Date on File: 03/22/22 service: No Current occupational status: employed Current occupation: Night Crew [employer] Cognitive needs: No Hearing needs: No Vision needs: Yes (Glasses) Review of Systems Const All systems reviewed & are unremarkable except as noted in HPI and below Reports no additional complaints Eyes Reports no additional complaints ENT Reports no additional complaints Card Reports no additional complaints Resp Reports no additional complaints GI Reports no additional complaints Reports as per HPI Musc Reports no additional complaints Neuro Reports no additional complaints Psych Reports no additional complaints Endo Reports no additional complaints Ron/Lymph Reports no additional complaints Aller/Immun Reports no additional complaints Physical Exam Const General: cooperative, healthy appearing, comfortable, no acute distress, well developed, alert and awake Orientation/consciousness: patient oriented x3 Resp Effort & Inspection: normal respiratory effort and able to speak in complete sentences Neuro General: patient oriented x3 Psych Appearance: well kempt Speech and movement: Clear speech present Affect: normal affect Attitude: cooperative Thought process: Normal thought process present Thought content: Normal thought content present Insight: Fair insight present (Psych) Judgement: Fair judgement present (Psych) Telehealth [facility] Location of provider rendering services: practice address Location of patient: address on file Patient Identification confirmed using: Name, : Yes Telehealth method: video Patient verbally consented to treatment: Yes Patient verbally consented to billing insurance company: Yes Patient informed of any privacy concerns related to visit: Yes Minutes spent on Phone/Video with Pt.: 15 Results Reviewed Results Reviewed: Date of Service: 09/08/24 Procedure(s): US renal BI Findings: Normal renal cortical thickness and echogenicity bilaterally. Mild fullness of the right renal collecting system with no kimberly hydronephrosis. No left hydronephrosis. Multiple tiny echogenic foci bilaterally with no significant shadowing. No cortical mass lesion. IMPRESSION: 1. No hydronephrosis. 2. Multiple tiny echogenic foci bilaterally, possible tiny stones. Assessment & Plan Assessment & Plan (1) Nephrolithiasis: Code(s): N20.0 - Calculus of kidney Category: Medical Plan Recent renal imaging results reviewed with the patient today; as noted above. We discussed importance of adequate hydration relation to nephrolithiasis as well as overall health and well-being. Will continue with surveillance monitoring. She currently denies any bothersome urinary issues. She reports be happy with current voiding parameters. Will obtain renal ultrasound 6 months Follow-up in 6 months with imaging to be completed prior; or sooner with any issues, concerns, and or questions Orders: Orders US renal BI 6 Months N20.0 - Calculus of kidney Patient Instructions: The patient had an opportunity to ask questions regarding the treatment plan. All questions were answered. Physical exam, labs, and imaging were discussed and reviewed in detail. As well as risks, benefits, and discussion of treatment choices. No major barriers to understanding were identified. The patient expressed understanding and agreement with the above treatment plan. The patient was made aware they should contact our office by phone for worsening of their current condition, the appearance of new symptoms, or with any questions or concerns. Compliance is encouraged with any medications and follow up testing that is ordered. It is a privilege to be allowed the opportunity to participate in? your urological care.? Again, if you have any questions or concerns If you have any questions or concerns please do not hesitate to contact me. The office is [phone]. This note is constructed using voice recognition software. While every effort has been made to ensure accuracy regulatory attorney errors may have been included. Yours sincerely, MARK Fuchs Coding Level of Care Code Tele Est Pt Level 3 (40112) Diagnoses Nephrolithiasis N20.0
--- OUTSIDE RECORDS SUMMARY | 2024-09-22 14:08 | XMS_ITS | Data Portability ---
Author Organization [place] [facility] Address [address] [place] [id number] Care Team Providers Care Service Counter Cashier Name Role Phone BRITTON OLIVER Primary Care Provider Assessment Encounter Date Assessment Date Assessment LastModified by Organization Details LastModified Time 09/04/2022 09/04/2022 Time On Scene with Patient: 00:30:50 Brief Overview: 37 y/o female with hx of asthma. pt c/o cough, wheezing, sob x 2-3 days. states he gets some relief with her rescue inhaler. cough is dry, she denies fever, chills. no sick contacts. she reports chest tightness. no nausea, vomiting, diarrhea. Vital Signs: BP 118/72, HR 84, RR 20, T 98.7, O2 100% RA Exam: pleasant 37 y/o female well appearing, alert NAD sitting on couch in her living room. eyes: no injection, icterus or discharge. nose: nares patent small amount clear nasal discharge. no sinus tenderness. Ears: TMs and EACs clear. mouth: moist mucous membranes no erythema, uvula is midline. no cervical lymphadenopathy. lungs: bilateral expiratory wheezes bases. no rales or rhonchi. heart: RRR no murmur rubs or gallops. no peripheral edema. strength is normal and equal bilaterally. skin: warm and dry no rashes or lesions. DDx considered, with rationale: Pneumonia: considered but she is afebrile, no tachypnea or hypoxia, lungs with bilateral wheeze on exam lower lobes. PE: considered but no hypoxia or tachycardia. Covid: considered but rapid was negative. Influenza: considered but rapid was negative. Results/ work up: Rapid covid and rapid flu test were both negative. Proper Personal Protective Equipment (PPE), including gloves, eye protection and masks were donned and doffed appropriately and all equipment cleaned using approved technique with germicidal disposable wipes prior to and after care of this patient according to [facility]'s infection prevention protocols. [email or web address] Not available 09/04/2022 17:37:34 Plan of Treatment Reminders Order Date Submit Date Provider Last Modified By Organization Details Last Modified Time Details Appointments None recorded. Lab rapid SARS CoV 2 Ag, QL IA, respiratory specimen 2022 023 [email or web address] 5 [facility], [address] [place], [address], 3 17:35:26 rapid flu (A+B) 2022 023 [email or web address] 5 [facility], [address] [place], [address], 17:35:22 Referral None recorded. Procedures None recorded. Surgeries None recorded. Imaging None recorded. Medication Orders prednisone 20 mg tablet 2022 023 [email or web address] 5 [id number], [address] [place], [address], 17:31:53 Patient TargetsNo targets recorded. Patient Instructions Encounter Date Encounter Id Patient Instructions Last Modified By Organization Details Last Modified Time 09/04/2022 [id number] Inhaler Instructions Before use, you need to prime the inhaler: ? Take the cap off the mouthpiece and put the inhaler in the spacer ? Shake the inhaler for 5 seconds ? Hold the inhaler upright with 1 finger on the top of the canister, the thumb on the bottom of the inhaler, and your other hand holding the spacer ? Express a large breath ? Close lips around spacer ? Press down on the canister ? After you press down on the canister, breathe (or have your child breathe in) deeply and slowly and hold your breath for 10 seconds ? Take out of your mouth and slowly exhale ? If you were instructed to take 2 puffs of the inhaler, wait one minute before you give the second puff. Shake the inhaler again before the second puff. ? If the inhaler is a steroid medicine (also called a ? g lucocorticoid? or ? c orticosteroid? ), rinse out your mouth, gargle, and spit out the water Cleaning: If you use the inhaler every day, you need to clean it at least once a week. If you use less often, clean the inhaler when you see powder in or around the hole. To clean an inhaler: ? Remove the canister and cap from the mouthpiece. Do not wash the canister or put the canister under water. ? Run warm water through the mouthpiece for 30 to 60 seconds ? Shake the water off of the mouthpiece and let it air dry Clean the spacer every 1-2 weeks. First, remove the inhaler from the spacer. Wash the spacer with warm water and dishwashing soap, but do NOT rinse it. Then let it air dry. Leaving the spacer a little soapy after cleaning actually helps it work better. [email or web address] Not available 09/04/2022 17:43:33 Reason for Referral None Reported. Results Created Date Observation Date Name Description Value Unit Range Abnormal Flag Note LastModifiedBy Organization Detail LastModifiedTime 09/05/19 23 09/04/2022 rapid SARS CoV 2 Ag, QL IA, respi rator y speci men Covid-19 (ref: neg) negati ve Not Available [facility] [address] [place], [address], 09/04/2022 17:33:49 09/05/19 23 09/04/2022 rapid SARS CoV 2 Ag, QL IA, respi rator y speci men Control Visual ized/V alid Not Available [facility] [address], [place], [address], 09/04/2022 17:33:49 09/05/19 23 09/04/2022 rapid SARS CoV 2 Ag, QL IA, respi rator y speci men Location [facility], [address] [place] [address], [id number] Not Available [facility] [address] [place] [address], [phone], 09/04/2022 17:33:49 09/05/19 23 09/04/2022 rapid flu (A+B) Flu A (ref: neg) negati ve Not Available [facility] - [address], [address], 09/04/2022 17:34:04 09/05/19 23 09/04/2022 rapid flu (A+B) Flu B (ref: neg) negati ve Not Available [facility] [address] [place] [address], [address], 09/04/2022 17:34:04 09/05/19 23 09/04/2022 rapid flu (A+B) Control Visual ized/V alid Not Available [facility] [address] [place] [address], [phone], 09/04/2022 17:34:04 09/05/19 23 09/04/2022 rapid flu (A+B) Location [facility], [address] [place] [address], [id number] [phone] Not Available [facility] [address] [place] [address], [phone], 09/04/2022 17:34:04 Result Notes None recorded. Procedures Surgical History Date Name Laterality Status Provider Name and Address Organization Details Recorded Time Shoulder joint surgery completed BRIANA Villanueva [address] [place] [address], [address], [place] [facility] 09/04/2022 11:25:59 Imaging Results None recorded. Procedure Notes None recorded. Medical Equipment None Reported. Allergies Allergen ID Allergen Name Allergen Category Reaction Reaction Severity Criticality Documentation Date Start Date Code Code System Note Provider Name and Address Organization Details Recorded Time 326557 Product containin g penicilli n (product) medicatio n Not available Not available Not available 09/04/2022 49109 8001 SNOMED BRIANA Villanueva [address], [place], [address], [place] [facility] 11:23:10 [id number] Abilify medicatio n Not available Not available Not available 09/04/2022 56320 3 Rx[facility] Radha Kai, BRIANA [address], [place], [address], [place] [facility] 3 11:23:23 [id number] Lamictal medicatio n Not available Not available Not available 09/04/2022 97221 2 RxNorm BRIANA Villanueva [address], [address] [place], [address], [place] [facility] 3 11:23:37 Medications Name Sig Start Date Stop Date Status Note LastModified by Organization Details LastModified Time quetiapine 25 mg tablet TAKE 1-2 TABLETS BY MOUTH AT BEDTIME NEEDED FOR ANXIETY OR INSOMNIA 09/04 completed Not Available Not Available Not Available albuterol sulfate 1.25 mg/3 mL solution for nebulizatio n USE 1 VIAL VIA NEBULIZER FOUR TIMES A DAY NEEDED FOR SHORTNESS OF BREATH OR WHEEZING active Not Available Not Available No t Available prednisone 20 mg tablet TAKE 2 TABLETS BY MOUTH EVERY DAY DIRECTED FOR 5 DAYS active Not Available Not Available No t Available topiramate 25 mg tablet TAKE 1 TABLET BY MOUTH TWICE A DAY FOR 7 DAYS 09/04 completed Not Available Not Available Not Available tramadol 50 mg tablet TAKE 1 TABLET BY MOUTH EVERY 6 HOURS NEEDED FOR PAIN SCALE SCORE 1-3 09/04 completed Not Available Not Available Not Available oxycodone-a cetaminophe n 5 mg-325 mg tablet TAKE 1 TABLET BY MOUTH EVERY 6 HOURS NEEDED FOR PAIN 09/04 completed Not Available Not Available Not Available ofloxacin 0.3 % ear drops INSTILL 5 DROPS INTO AFFECTED EAR(S) BY OTIC ROUTE ONCE DAILY 09/04 completed Not Available Not Available Not Available lorazepam 0.5 mg tablet TAKE 1 TABLET BY MOUTH EVERY DAY NEEDED FOR ANXIETY active Not Available Not Available No t Available tamsulosin 0.4 mg capsule TAKE 1 CAPSULE BY MOUTH BEDTIME FOR 14 DAYS 09/04 completed Not Available Not Available Not Available fluvoxamine 100 mg tablet TAKE 1 TABLET BY MOUTH EVERY DAY IN THE MORNING DIRECTED 09/04 completed Not Available Not Available Not Available pyridoxine (vitamin B6) 100 mg tablet TAKE 1/2 TABLET BY MOUTH EVERY DAY FOR 90 DAYS active Not Available Not Available No t Available ibuprofen 600 mg tablet TAKE 1 TABLET BY MOUTH EVERY 6 HOURS NEEDED FOR PAIN OR FEVER 09/04 completed Not Available Not Available Not Available naproxen 500 mg tablet TAKE 1 TABLET BY MOUTH TWICE A DAY NEEDED FOR PAIN FOR 7 DAYS 09/04 completed Not Available Not Available Not Available Ventolin HFA 90 mcg/actuati on aerosol inhaler INHALE 2 PUFFS EVERY 4 HOURS BY INHALATIO N ROUTE. active Not Available Not Available No t Available fluvoxamine ER 150 mg capsule,ext ended release 24 hr TAKE 1 CAPSULE BY MOUTH EVERY DAY IN THE MORNING active Not Available Not Available No t Available Vitals Date Recorded Heart rate Respiratory rate Body temperature Oxygen saturation Oxygen saturation in Arterial blood by Pulse oximetry Systolic blood pressure Diastolic blood pressure Provider Name and Address Organization Details Last Updated DateTime 3 84 /min 20 /min 98.7 [degF] 100 % 100 % 118 mm[Hg] 72 mm[Hg] Not Available [facility] 3 11:28:03 Social History Question Answer Notes LastModified by Organization D etails LastModified Time Does This Patient Have A PCP? Yes [email or web address] Information not available 09/04/2022 Has The Patient Seen Their PCP In The Past 6 Months? No [email or web address] Information not available 09/04/2022 Sex: Unknown Functional Status None recorded. Mental Status None recorded. Family History Relationship Description Onset Age of this Age Resolved Age Notes LastModified by Organization Details LastModified Time Mother Coronary arterioscler osis [email or web address] Not available 09/04 11:25:38 Medical History Condition Response Diabetes N Coronary Artery Disease N CHF N Parkinson's Disease N Cancer N Dementia N Stroke N Depression N Asthma Y COPD N Hypothyroidism N High Cholesterol N Rheumatoid Arthritis N Pulmonary Embolism N Hypertension N A-fib N Osteoporosis N Kidney Disease N Gynecological HistoryNo gynecological history recorded. Obstetrics History GPAL:G 0 P 0 0 0 0 Past Encounters Encounter ID Performer Location Encounter Start Date Encounter Closed Date Diagnosis/Indication Diagnosis SNOMED-CT Code Diagnosis ICD10 Code Diagnosis Note [id number] BRIANA Villanueva [facility] [address] [facility] [place] [address] 09/04/2022 11:21:01 09/04/2022 17:50:51 Exacerbation of intermittent asthma 031632597 J45.21 Status of condition: {{Acute Ex acerbation /Acute on chronic* C hronic Sta ble Worsen ing/Progre ssion Unco ntrolled C ritical: Warrants escalation to ED. Undete rmined: Unclear staging of condition. Needs further evaluation and management by PCP and/or Specialist }}. Testing/Re sults: rapid covid and rapid flu both negative. Discussion :faint bilateral expiratory wheeze at the bases. Plan, Medication Management & Follow-up recommenda tions: Generalize d anxiety disorder [id number] F41.1 Status of condition: {{Acute Ex acerbation /Acute on chronic Ch ronic* Sta ble Worsen ing/Progre ssion Unco ntrolled C ritical: Warrants escalation to ED. Undete rmined: Unclear staging of condition. Needs further evaluation and management by PCP and/or Specialist }}. Testing/Re sults: n/a Discussion : condition is stable on current medication regimen. continue current meds as prescribed by MD. she denies hi/si. Plan, Medication Management & Follow-up recommenda tions:foll ow up with pcp as scheduled. go to the ER with worsening symptoms cp, sob, dizziness, weakness, increased anxiety/ depression , agitation, hi/si. Health Concerns Section Related Observation LastModified by Organization Detai ls LastModified Time None Recorded Concern Status LastModified by Organization Details LastModified Time None Recorded Advance Directives Directive None Recorded Payers Insurance Date Sequence Insurance Name Policy Number Policy Deleon Covered Member ID Deleon Member ID Guarantor Name 09/04/2022 1 *SE[facility] PA[facility]* [id number] Hattie Samuel 09/15/2022 1 [employer] (MEDICAID REPLACEMENT - HMO) [facility] [id number] Hattie Samuel Notes Date Note Type Note Provider Name and Address Organization Details Recorded Time 09/04/2022 text/html 37 y/o female ne w to and new to provider with hx of Asthma, anxiety, Bipolar, PTSD. pt reports cough x 2-3 days now with intermittent wheezing. states chest feels tight. she reports chest wall pain anterior chest that is reproducible with deep inhalation and palpation. she reports sob. states inhaler helps some but she is concerned she could have bronchitis or asthma flare. denies fever or chills. no nausea, vomiting, diarrhea. she denies dizziness, weakness. she has some clear nasal congestion, denies [place], body aches, sore throat. she has been taking plain claritin for her seasonal allergies. BRIANA Villanueva [address] [place], [address], [place] [facility] 09/04/2022 17:44:33 OBGyn Episode No OBEpisode recorded.
== END 2024-09-22 15:00 | disposition home or self-care (01) ==
LOC: HO.HUSH 14:02
PROVIDERS: PCP Internal Medicine; Visit Provider Nurse Practitioner Family
DX: N20.0 Calculus of kidney (principal)
CPT/HCPCS: 99213